=== PATIENT | male | born 1950 | race Caucasian/White ===

== ENCOUNTER 2016-12-03 06:27 | Day surgery (SDC) | payer MEDICARE ==
[2016-11-26 10:16] VITALS: BMI 27.8
[~2016-12-03 06:27] MED LIST: DEXAMETHASONE SOD PHOSPHATE 10 MG/ML 1 ML VIAL IV ONE; HEPARIN SODIUM,PORCINE 5,000 UNIT/ML 1 ML VIAL SQ ONE; LACTATED RINGERS 1,000 ML IV SCH; MIDAZOLAM 2 MG/2 ML VIAL IV PRN; ONDANSETRON 4 MG/2 ML VIAL IVP ONE; Pre Op ABX Message 1 EACH MISC MISCELLANE ONE; SCOPOLAMINE 1.5MG/72HR PATCH TRANSDERM ONE
--- NOTE | 2016-12-03 07:44 | P.GSHP ---
History of Present Illness H&P Date: 12/03/16 Chief Complaint: Multiple lipomas Patient here today for excision of multiple lipomas. He has had several removed in the past. Currently has symptomatic lipomas involving the left chest wall in the left arm. They are increasing in size. No drainage. Past Medical History Additional Past Medical History / Comment(s): hx lipomas, History of Any Multi-Drug Resistant Organisms: None Reported Past Surgical History: Back Surgery, Coronary Bypass/CABG, Heart Catheterization With Stent, Joint Replacement Additional Past Surgical History / Comment(s): DOUBLE BYPASS, ONE HEART STENT, removal of lipoma, jaw surgery X2, tyrell knee replacements Past Anesthesia/Blood Transfusion Reactions: Postoperative Nausea & Vomiting ( PONV) Additional Past Anesthesia/Blood Transfusion Reaction / Comment(s): PONV and unable to urinate from morphine Date of Last Stent Placement:: 10/2008 Past Psychological History: No Psychological Hx Reported Smoking Status: Never smoker Past Alcohol Use History: None Reported Past Drug Use History: None Reported - Past Family History Mother Family Medical History: Cancer Father Family Medical History: Diabetes Mellitus, Deep Vein Thrombosis (DVT), Hypertension Brother(s) Family Medical History: Deep Vein Thrombosis (DVT) Medications and Allergies Home Medications Medication Instructions Recorded Confirmed Type Aspirin 81 mg PO DAILY 07/29/15 12/03/16 History Multivitamins, Thera [Multivitamin] 1 each PO DAILY 07/29/15 12/03/16 History Naproxen Sodium [Aleve] 220 mg PO DIRECTED PRN 07/29/15 12/03/16 History L.acidoph,Paracasei, B.lactis 1 tab PO DAILY 11/26/16 12/03/16 History [Probiotic] Metoprolol Tartrate [Lopressor] 12.5 mg PO BID 11/26/16 12/03/16 History Polyethylene Glycol 3350 [Miralax] 17 gm PO DIRECTED PRN 11/26/16 12/03/16 History Pravastatin Sodium [Pravachol] 5 mg PO MOWEFR 11/26/16 12/03/16 History Silodosin [Rapaflo] 8 mg PO DAILY 11/26/16 12/03/16 History Allergies Allergy/AdvReac Type Severity Reaction Status Date / Time morphine Allergy Severe Nausea & Verified 12/03/16 06:53 Vomiting/UNABLE TO URINATE acetaminophen [From Lortab] Allergy Rash/Hives Verified 12/03/16 06:53 hydrocodone bitartrate Allergy Rash/Hives Verified 12/03/16 06:53 [From Lortab] propoxyphene napsylate Allergy Unknown Verified 12/03/16 06:53 [From Darvocet-N] Hogtphj-Ljo-Mle Reductase Allergy muscle Verified 12/03/16 06:53 Inhibitor weakness,increased liver function test Surgical - Exam Vital Signs Temp Pulse Resp BP Pulse Ox 97.9 F 98 18 147/98 99 12/03/16 06:57 12/03/16 06:57 12/03/16 06:57 12/03/16 06:57 12/03/16 06:57 Physical exam: General: Well-developed, well-nourished HEENT: Normocephalic, sclerae nonicteric Abdomen: Nontender, nondistended Extremities: No edema, large lipoma left brachial region measuring at least 6-7 cm, multiple lipomas involving the left chest wall measuring up to 4 cm in size Neuro: Alert and oriented Assessment and Plan (1) Multiple lipomas Narrative/Plan: We'll proceed with surgical excision at this time. Status: Acute
[2016-12-03] MEDS ORDERED: MIDAZOLAM 2 MG/2 ML VIAL ONE (07:54)
[2016-12-03] MEDS ORDERED: SUCCINYLCHOLINE CHLORIDE VIAL 200 MG/10 ML VIAL IV ONE (07:54)
[2016-12-03] MEDS ORDERED: PROPOFOL 10 MG/ML 20 ML VIAL IV ONE (07:54)
[2016-12-03] MEDS ORDERED: LIDOCAINE 1% INJ 10MG/ML (20 ML MDV) ONE (07:54)
[2016-12-03] MEDS ORDERED: fentaNYL (PF) 50 MCG/ML 2 ML AMP ONE (07:54)
[2016-12-03] MEDS ORDERED: ONDANSETRON 4 MG/2 ML VIAL ONE (07:54)
[2016-12-03] MEDS ORDERED: BUPIVACAIN-EPI 0.25%-1:200,000 30 ML VIAL SQ ONE ×3 (08:11→08:48)
[2016-12-03] MEDS ORDERED: LACTATED RINGERS 1,000 ML IV ONE (08:33)
[2016-12-03 09:11] VITALS: TEMP 97.6
[2016-12-03] MEDS ORDERED: NALOXONE 0.4 MG/ML 1 ML VIAL IV PRN (09:15)
--- NOTE | 2016-12-03 09:18 | P.PCN ---
Date of Procedure: 12/03/16 Procedure(s) Performed: PREOPERATIVE DIAGNOSIS: Multiple lipomas POSTOPERATIVE DIAGNOSIS: Same PROCEDURE: Excision multiple lipomas SURGEON: Cb EBL: Minimal ANESTHESIA: General COMPLICATIONS: None OPERATIVE PROCEDURE: Patient placed in the operative table in the supine position. The left upper arm and chest were prepped and draped in usual sterile fashion. First the left arm lipoma was addressed. This was in the brachial region anteriorly. A longitudinal incision was made. Instead of one lipoma there was actually 3 lipomas in that same area. These were all removed using both blunt dissection and cautery. These measured 4, 3, and 2 cm in size. The subcutaneous tissues were closed using 3-0 Vicryl sutures and the skin using 4-0 Monocryl sutures. Next the left chest wall was addressed. There were 4 separate lipomas present. These were all removed using small horizontal incisions. These measured 2.5, 2, 2, 1.5 cm. The skin incisions were closed in a similar fashion. Steri-Strips and sterile dressings were applied. DISPOSITION: Stable to recovery room
[2016-12-03] MEDS ORDERED: ACETAMINOPHEN TAB 325 MG TAB PO ONE (10:04)
[2016-12-03 10:28] VITALS: BP 126/80; PULSE 88; RESP 20
== END 2016-12-03 10:54 | disposition home or self-care (01) ==
LOC: OR 06:27
PROVIDERS: ATTEND Surgery
DX: D17.22 Benign lipomatous neoplasm of skin and subcutaneous tissue of left arm (principal); D17.1 Benign lipomatous neoplasm of skin and subcutaneous tissue of trunk; M79.89 Other specified soft tissue disorders; I10 Essential (primary) hypertension; E78.5 Hyperlipidemia, unspecified; I25.10 Atherosclerotic heart disease of native coronary artery without angina pectoris; Z95.1 Presence of aortocoronary bypass graft; Z79.82 Long term (current) use of aspirin; Z79.899 Other long term (current) drug therapy; Z88.5 Allergy status to narcotic agent; Z88.8 Allergy status to other drugs, medicaments and biological substances
CPT/HCPCS: 88304; 24071; 19260; J2250; J0330; J1644; J1100; J2405; J2001; J3010; J2704

== ENCOUNTER → 2016-12-22 | Outpatient (CLI) | payer MEDICARE | END | disposition home or self-care (01) | LOC: LABWHC1 16:46 | PROVIDERS: ATTEND Internal Medicine Clinical Cardiac Electrophysiology | DX: G72.9 Myopathy, unspecified (principal) | CPT/HCPCS: 36415; 82550 ==

== ENCOUNTER 2016-12-29 15:19 | Inpatient (IN) | payer MEDICARE ==
[2016-12-29] MEDS ORDERED: SODIUM CHLORIDE 0.9% 1,000 ML IV STA (17:32)
--- NOTE | 2016-12-29 17:33 | ED ---
General Adult HPI - General Source: patient, RN notes reviewed Mode of arrival: ambulatory Limitations: no limitations <Jam Carlson - Last Filed: 12/29/16 20:21> <Anand Yan - Last Filed: 12/29/16 20:45> - General Chief complaint: Abdominal Pain Stated complaint: GI Bleed lower Time Seen by Provider: 12/29/16 17:19 - History of Present Illness Initial comments: Patient is a 66-year-old male status post lumpectomy 3 weeks, who presents emergency room today with multiple complaints. Patient states she's been having abdominal pain since his surgery. States he does have a history of constipation specifically worse after general anesthesia. He admits that he was unable to take laxatives due to a in the family. States been having small bowel movements. States today he has 9 small bowel movements that were bright red blood on the toilet paper. He admits to a history of hemorrhoids. Patient admits that he began having some chest pain and discomfort yesterday. Patient states it is to the left side and feels similar to the pain that he was experiencing with these lumps prior to surgery. Patient does admit to some shortness of breath. Admits to increased abdominal pain with decreased ability to void. States she's had similar problems in the past and difficulties with Ross catheters. Patient currently admits to increased abdominal pain. He admits to a fullness sensation feeling constipated. Currently denies any other complaints at this time. Patient denies any recent fever, chills, back pain, abdominal pain, nausea or vomiting, numbness or tingling, hematuria, diarrhea, headaches or visual changes, or any other complaints. (Jam Carlson) - Related Data Home Medications Medication Instructions Recorded Confirmed Aspirin 81 mg PO DAILY 07/29/15 12/29/16 Naproxen Sodium [Aleve] 220 mg PO Q24HR PRN 07/29/15 12/29/16 L.acidoph,Paracjoni, B.lactis 1 tab PO DAILY 11/26/16 12/29/16 [Probiotic] Metoprolol Tartrate [Lopressor] 12.5 mg PO BID 11/26/16 12/29/16 Polyethylene Glycol 3350 [Miralax] 17 gm PO DAILY 11/26/16 12/29/16 Pravastatin Sodium [Pravachol] 5 mg PO MOWEFR 11/26/16 12/29/16 Silodosin [Rapaflo] 8 mg PO DAILY 11/26/16 12/29/16 Clotrimazole/Betameth Cream 1 applic TOPICAL BID 12/29/16 12/29/16 [Lotrisone] Dimethic/Zinc Ox/Vits A,D/Aloe 1 applic TOPICAL DAILY PRN 12/29/16 12/29/16 [A+D Zinc Oxide Cream] Phenyleph/Mineral Oil/Petrolat 1 applic RECTAL DAILY PRN 12/29/16 12/29/16 [Preparation H Ointment] Proctocort 30 mg RECTAL BID PRN 12/29/16 12/29/16 Zinc Oxide [Desitin] 1 applic TOPICAL DAILY PRN 12/29/16 12/29/16 Allergies Allergy/AdvReac Type Severity Reaction Status Date / Time morphine Allergy Severe Nausea & Verified 12/29/16 17:07 Vomiting/UNABLE TO URINATE acetaminophen [From Lortab] Allergy Rash/Hives Verified 12/29/16 17:07 codeine Allergy Unknown Verified 12/29/16 17:07 hydrocodone bitartrate Allergy Rash/Hives Verified 12/29/16 17:07 [From Lortab] propoxyphene napsylate Allergy Unknown Verified 12/29/16 15:46 [From Darvocet-N] Ezwhgof-Eqq-Bqb Reductase Allergy muscle Verified 12/29/16 17:07 Inhibitor weakness,increased liver function test Review of Systems ROS Other: All systems not noted in ROS Statement are negative. <Jam Carlson - Last Filed: 12/29/16 20:21> ROS Other: All systems not noted in ROS Statement are negative. <Anand Yan - Last Filed: 12/29/16 20:45> ROS Statement: Those systems with pertinent positive or pertinent negative responses have been documented in the HPI. Past Medical History Additional Past Medical History / Comment(s): elevated creatinine, hx trauma induced gout, hx lipomas, History of Any Multi-Drug Resistant Organisms: None Reported Past Surgical History: Heart Catheterization With Stent, Joint Replacement Additional Past Surgical History / Comment(s): removal of lipoma, jaw surgery, tyrell knee replacements Past Anesthesia/Blood Transfusion Reactions: Postoperative Nausea & Vomiting ( PONV) Additional Past Anesthesia/Blood Transfusion Reaction / Comment(s): PONV and unable to urinate from morphine Date of Last Stent Placement:: 10/2008 Past Psychological History: No Psychological Hx Reported Smoking Status: Never smoker Past Alcohol Use History: Rare Past Drug Use History: None Reported - Past Family History Mother Family Medical History: Cancer Father Family Medical History: Diabetes Mellitus, Deep Vein Thrombosis (DVT), Hypertension Brother(s) Family Medical History: Deep Vein Thrombosis (DVT) <Jam Carlson - Last Filed: 12/29/16 20:21> General Exam Limitations: no limitations <Jam Carlson - Last Filed: 12/29/16 20:21> <Anand Yan - Last Filed: 12/29/16 20:45> - General Exam Comments Initial Comments: General: The patient is awake and alert, in no distress, and does not appear acutely ill. Eye: Pupils are equal, round and reactive to light, extra-ocular movements are intact. No nystagmus. There is normal conjunctiva bilaterally. No signs of icterus. Ears, nose, mouth and throat: There are moist mucous membranes and no oral lesions. Neck: The neck is supple, there is no tenderness or JVD. Cardiovascular: There is a regular rate and rhythm. No murmur, rub or gallop is appreciated. Respiratory: Lungs are clear to auscultation, respirations are non-labored, breath sounds are equal. No wheezes, stridor, rales, or rhonchi. Gastrointestinal: Normal appearance and appear normal bowel sounds. Abdomen soft on palpation. Patient does have mild tenderness and discomfort on palpation throughout the abdomen. Musculoskeletal: Normal ROM, no tenderness. Strength 5/5. Sensation intact. Pulses equal bilaterally 2+. Neurological: A&O x 3. CN II-XII intact, There are no obvious motor or sensory deficits. Coordination appears grossly intact. Speech is normal. Skin: Skin is warm and dry and no rashes or lesions are noted. Psychiatric: Cooperative, appropriate mood & affect, normal judgment. (Jam Carlson) Course <Jam Carlson - Last Filed: 12/29/16 20:21> <Anand Yan - Last Filed: 12/29/16 20:45> Vital Signs 12/29/16 12/29/16 12/29/16 15:37 17:25 18:13 Temperature 97.8 F Pulse Rate 113 H 116 H 110 H Respiratory 20 18 20 Rate Blood Pressure 152/93 145/103 139/86 O2 Sat by Pulse 98 99 Oximetry 12/29/16 18:47 Temperature Pulse Rate 99 Respiratory 22 Rate Blood Pressure 139/89 O2 Sat by Pulse 94 L Oximetry - Reevaluation(s) Reevaluation #1: 12/29/16 20:22 Case discussed and signed out to attending physician at this time Dr. Yan. Patient's labs been reviewed. Patient's CT shows negative CT scanning of the chest abdomen pelvis. There is left renal parapelvic cyst. Normal appendix. Small hiatal hernia. There is noted a minimal degenerative first degree L5-4. Probable hemangioma Right lobe of the liver. 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 Patient still having some mild abdominal discomfort. Abdomen soft on palpation. Patient will be given enema here the emergency room to see if there is relief. (Jam Carlson) Medical Decision Making - Lab Data Result diagrams: 12/29/16 17:05 12/29/16 17:05 <Jam Carlson - Last Filed: 12/29/16 20:21> - Lab Data Result diagrams: 12/29/16 17:05 12/29/16 17:05 <Anand Yan - Last Filed: 12/29/16 20:45> - Medical Decision Making Review of systems. I interviewed the patient he states she's not had a normal bowel movement for several weeks. For the past 10 days to having blood after he wipes or take sometimes 10 tissues to stop the bleeding. Rectal examination done at this time is extremely painful unable to insert my finger more than 3 course of an inch. Fresh blood was noted. No strong evidence for external bleeding hemorrhoids cannot rule out internal fissure or internal bleeding hemorrhoids. The patient has had decreased appetite. Almost no bowel movements for several weeks that would consider normal. He has had a lot of stress lately with the of his mother. Vital signs reviewed. The patient' s x-rays were reviewed and reported on by the radiologist essentially no evidence of any obstruction. The patient's white count 12.5 hemoglobin 17 hematocrit 51, INR 1.1 the d-dimer elevated 1.87 BUN 11 creatinine 1.0 GFR greater than 60. Glucose 107. Troponin less than 0. Total bilirubin 1.8, CK 250 MB 4.1. Examination the abdomen is tender, active bowel sounds. Patient appears very uncomfortable. He has seen Dr. Silveira in the past one year ago had a colonoscopy which apparently did not show any diverticular issues. I discussed the case with Dr. De Los Santos he agrees with the patient be admitted his service with consultation from Dr. Silveira for GI bleed. (Anand Yan) - Lab Data Lab Results 12/29/16 12/29/16 12/29/16 Range/Units 17:05 17:05 17:05 WBC 12.5 H (3.8-10.6) k/uL RBC 5.90 (4.30-5.90) m/uL Hgb 17.3 (13.0-17.5) gm/dL Hct 51.2 (39.0-53.0) % MCV 86.7 (80.0-100.0) fL MCH 29.3 (25.0-35.0) pg MCHC 33.7 (31.0-37.0) g/dL RDW 13.6 (11.5-15.5) % Plt Count 229 (150-450) k/uL Neutrophils % 77 % Lymphocytes % 11 % Monocytes % 9 % Eosinophils % 1 % Basophils % 0 % Neutrophils # 9.6 H (1.3-7.7) k/uL Lymphocytes # 1.4 (1.0-4.8) k/uL Monocytes # 1.1 H (0-1.0) k/uL Eosinophils # 0.1 (0-0.7) k/uL Basophils # 0.1 (0-0.2) k/uL PT (9.0-12.0) sec INR (<1.1) APTT (22.0-30.0) sec D-Dimer (<0.60) mg/L FEU Sodium 139 (137-145) mmol/L Potassium 4.4 (3.5-5.1) mmol/L Chloride 104 (98-107) mmol/L Carbon Dioxide 21 L (22-30) mmol/L Anion Gap 14 mmol/L BUN 11 (9-20) mg/dL Creatinine 1.00 (0.66-1.25) mg/dL Est GFR (MDRD) Af Amer >60 (>60 ml/min/1.73 sqM) Est GFR (MDRD) Non-Af >60 (>60 ml/min/1.73 sqM) Glucose 107 H (74-99) mg/dL Calcium 9.7 (8.4-10.2) mg/dL Total Bilirubin 1.8 H (0.2-1.3) mg/dL AST 35 (17-59) U/L ALT 45 (21-72) U/L Alkaline Phosphatase 88 (38-126) U/L Total Creatine Kinase 258 H (55-170) U/L CK-MB (CK-2) 4.1 H* (0.0-2.4) ng/mL CK-MB (CK-2) Rel Index 1.6 Troponin I <0.012 (0.000-0.034) ng/mL Total Protein 7.3 (6.3-8.2) g/dL Albumin 4.5 (3.5-5.0) g/dL Urine Color Urine Appearance (Clear) Urine pH (5.0-8.0) Ur Specific [place] (1.001-1.035) Urine Protein (Negative) Urine Glucose (UA) (Negative) Urine Ketones (Negative) Urine Blood (Negative) Urine Nitrate (Negative) Urine Bilirubin (Negative) Urine Urobilinogen (<2.0) mg/dL Ur Leukocyte Esterase (Negative) Stool Occult Blood (Negative) 12/29/16 12/29/16 12/29/16 Range/Units 17:05 17:05 17:30 WBC (3.8-10.6) k/uL RBC (4.30-5.90) m/uL Hgb (13.0-17.5) gm/dL Hct (39.0-53.0) % MCV (80.0-100.0) fL MCH (25.0-35.0) pg MCHC (31.0-37.0) g/dL RDW (11.5-15.5) % Plt Count (150-450) k/uL Neutrophils % % Lymphocytes % % Monocytes % % Eosinophils % % Basophils % % Neutrophils # (1.3-7.7) k/uL Lymphocytes # (1.0-4.8) k/uL Monocytes # (0-1.0) k/uL Eosinophils # (0-0.7) k/uL Basophils # (0-0.2) k/uL PT 10.8 (9.0-12.0) sec INR 1.1 (<1.1) APTT 23.4 (22.0-30.0) sec D-Dimer 1.87 H (<0.60) mg/L FEU Sodium (137-145) mmol/L Potassium (3.5-5.1) mmol/L Chloride (98-107) mmol/L Carbon Dioxide (22-30) mmol/L Anion Gap mmol/L BUN (9-20) mg/dL Creatinine (0.66-1.25) mg/dL Est GFR (MDRD) Af Amer (>60 ml/min/1.73 sqM) Est GFR (MDRD) Non-Af (>60 ml/min/1.73 sqM) Glucose (74-99) mg/dL Calcium (8.4-10.2) mg/dL Total Bilirubin (0.2-1.3) mg/dL AST (17-59) U/L ALT (21-72) U/L Alkaline Phosphatase (38-126) U/L Total Creatine Kinase (55-170) U/L CK-MB (CK-2) (0.0-2.4) ng/mL CK-MB (CK-2) Rel Index Troponin I (0.000-0.034) ng/mL Total Protein (6.3-8.2) g/dL Albumin (3.5-5.0) g/dL Urine Color Urine Appearance (Clear) Urine pH (5.0-8.0) Ur Specific [place] (1.001-1.035) Urine Protein (Negative) Urine Glucose (UA) (Negative) Urine Ketones (Negative) Urine Blood (Negative) Urine Nitrate (Negative) Urine Bilirubin (Negative) Urine Urobilinogen (<2.0) mg/dL Ur Leukocyte Esterase (Negative) Stool Occult Blood Positive (Negative) 12/29/16 Range/Units 17:43 WBC (3.8-10.6) k/uL RBC (4.30-5.90) m/uL Hgb (13.0-17.5) gm/dL Hct (39.0-53.0) % MCV (80.0-100.0) fL MCH (25.0-35.0) pg MCHC (31.0-37.0) g/dL RDW (11.5-15.5) % Plt Count (150-450) k/uL Neutrophils % % Lymphocytes % % Monocytes % % Eosinophils % % Basophils % % Neutrophils # (1.3-7.7) k/uL Lymphocytes # (1.0-4.8) k/uL Monocytes # (0-1.0) k/uL Eosinophils # (0-0.7) k/uL Basophils # (0-0.2) k/uL PT (9.0-12.0) sec INR (<1.1) APTT (22.0-30.0) sec D-Dimer (<0.60) mg/L FEU Sodium (137-145) mmol/L Potassium (3.5-5.1) mmol/L Chloride (98-107) mmol/L Carbon Dioxide (22-30) mmol/L Anion Gap mmol/L BUN (9-20) mg/dL Creatinine (0.66-1.25) mg/dL Est GFR (MDRD) Af Amer (>60 ml/min/1.73 sqM) Est GFR (MDRD) Non-Af (>60 ml/min/1.73 sqM) Glucose (74-99) mg/dL Calcium (8.4-10.2) mg/dL Total Bilirubin (0.2-1.3) mg/dL AST (17-59) U/L ALT (21-72) U/L Alkaline Phosphatase (38-126) U/L Total Creatine Kinase (55-170) U/L CK-MB (CK-2) (0.0-2.4) ng/mL CK-MB (CK-2) Rel Index Troponin I (0.000-0.034) ng/mL Total Protein (6.3-8.2) g/dL Albumin (3.5-5.0) g/dL Urine Color Light Yellow Urine Appearance Clear (Clear) Urine pH 5.0 (5.0-8.0) Ur Specific [place] 1.006 (1.001-1.035) Urine Protein Negative (Negative) Urine Glucose (UA) Negative (Negative) Urine Ketones Trace H (Negative) Urine Blood Negative (Negative) Urine Nitrate Negative (Negative) Urine Bilirubin Negative (Negative) Urine Urobilinogen <2.0 (<2.0) mg/dL Ur Leukocyte Esterase Negative (Negative) Stool Occult Blood (Negative) Disposition <Jam Carlson - Last Filed: 12/29/16 20:21> <Anand Yan - Last Filed: 12/29/16 20:45> Clinical Impression: GI bleed Disposition: ADMITTED IP TO THIS HOSP Condition: Fair
[2016-12-29 17:34] LABS: Basophils # (A) 0.1 k/uL (0-0.2); Basophils % (A) 0 %; CH 30.7; CHCM 35.6; Eosinophils # (A) 0.1 k/uL (0-0.7); Eosinophils % (A) 1 %; HCT 51.2 % (39.0-53.0); HDW 2.93; HGB 17.3 gm/dL (13.0-17.5); Luc # (Auto) 0.29; Luc % (Auto) 2; Lymphocytes # (A) 1.4 k/uL (1.0-4.8); Lymphocytes % (A) 11 %; MCH 29.3 pg (25.0-35.0); MCHC 33.7 g/dL (31.0-37.0); MCV 86.7 fL (80.0-100.0); Mean Platelet Volume 7.3; Monocytes # (A) 1.1 k/uL (0-1.0); Monocytes % (A) 9 %; Neutrophils # (A) 9.6 k/uL (1.3-7.7); Neutrophils % (A) 77 %; RDW 13.6 % (11.5-15.5); WBC 12.5 k/uL (3.8-10.6); WBC (Perox) 12.96
[2016-12-29 17:42] LABS: ALT 45 U/L (21-72); AST 35 U/L (17-59); Alkaline Phosphatase 88 U/L (38-126); Anion Gap 14 mmol/L; Blood Urea Nitrogen 11 mg/dL (9-20); Calcium 9.7 mg/dL (8.4-10.2); Carbon Dioxide 21 mmol/L (22-30); Chloride 104 mmol/L (98-107); Glucose 107 mg/dL (74-99); Non-African American GFR(MDRD) >60 (>60 ml/min/1.73 sqM); Potassium 4.4 mmol/L (3.5-5.1); Sodium 139 mmol/L (137-145); Total Bilirubin 1.8 mg/dL (0.2-1.3); Total Protein 7.3 g/dL (6.3-8.2)
[2016-12-29 17:51] LABS: Creatine Kinase 258 U/L (55-170)
[2016-12-29] MEDS ORDERED: LORazepam 1 MG TAB PO STA (17:54)
[2016-12-29 18:04] LABS: Troponin I <0.012 ng/mL (0.000-0.034)
[2016-12-29 18:10] LABS: Creatine Kinase MB 4.1 ng/mL (0.0-2.4)
--- NOTE | 2016-12-29 18:33 | XR ---
EXAMINATION TYPE: XR chest 2V DATE OF EXAM: 12/29/2016 6:25 PM COMPARISON: NONE HISTORY: Chest pain TECHNIQUE: Frontal and lateral views of the chest are obtained. FINDINGS: There is no heart failure nor confluent pneumonic infiltrate. There are no hilar masses. T here are sternal wires. There are chest leads. Costophrenic angles are clear. Bony thorax is intact. IMPRESSION: No active cardiopulmonary disease. Normal heart.
[2016-12-29 18:34] LABS: Appearance,Urine Clear (Clear); Bilirubin,Urine Negative (Negative); Glucose,Urine (UA) Negative (Negative); Ketones,Urine Trace (Negative); Leukocyte Esterase,Urine Negative (Negative); Nitrite,Urine Negative (Negative); Protein,Urine Negative (Negative); Specific Gravity,Urine 1.006 (1.001-1.035); UA Billing (MACRO vs. MICRO) CHEM; Urobilinogen,Urine <2.0 mg/dL (<2.0)
--- NOTE | 2016-12-29 18:35 | XR ---
EXAMINATION TYPE: XR KUB DATE OF EXAM: 12/29/2016 6:25 PM COMPARISON: NONE HISTORY: Rectal bleeding TECHNIQUE: 2 views FINDINGS: Bowel gas pattern is normal. There is no sign of intestinal obstruction or pneumoperitoneum . Fecal pattern is normal. There is no evidence of a mass. Lung bases are clear. There are no patholo gic calcifications over the kidneys. Bony structures are intact. This probably lower lumbar spine nascimento inectomy. There are a few fluid levels in the right abdomen consistent with fluid in the right colon. IMPRESSION: Right-sided colonic air-fluid levels could relate to diarrhea or active bleeding. No free air. No bowel obstruction..
[2016-12-29] MEDS ORDERED: RX INFO: IV CONTRAST WAS GIVEN 1 EACH MISC MISCELLANE PRN (18:55)
[2016-12-29 19:02] LABS: INR 1.1 (<1.1); Prothrombin Time 10.8 sec (9.0-12.0)
--- NOTE | 2016-12-29 19:51 | CT ---
EXAMINATION TYPE: CT Chest Abd Pelvis w con DATE OF EXAM: 12/29/2016 7:36 PM COMPARISON: NONE HISTORY: rectal and scrotal pain with rectal bleeding for [address] DLP: 1866.9 mGycm Automated exposure control for dose reduction was used. CONTRAST: CT scan of the chest, abdomen and pelvis is performed without Oral Contrast and with IV Contrast, pat ient injected with 100 mL of Omnipaque 300. FINDINGS: The lungs are clear of consolidation. There is no pleural effusion. There is probably a small hiatal hernia. Heart size is normal. There is no pericardial effusion. There are no hilar masses. Ascending aorta measures up to 4 cm. There is no evidence of aortic dissection. There is no mediastinal adenopa thy. There is a geographic 3 cm area of hypodensity in the superior right lobe of the liver that could rel ate to hemangioma. This appears to enhance on the delayed images. Spleen appears normal. There is no pancreatic mass. Gallbladder appears normal. Bile ducts are not di lated. There is no adrenal mass. There is no hydronephrosis. There are left-sided renal parapelvic cysts. Th ere is a 1 cm cortical cyst on the lateral right kidney. There is no retroperitoneal adenopathy. Ther e is no ascites. Bladder distends smoothly. There is no sign of a hernia. I see no pelvic mass. Appen sukumar appears normal. IMPRESSION: Negative CT scan of the chest abdomen and pelvis. Left renal parapelvic cysts. Normal justina endix. Small hiatal hernia. There is noted a minimal degenerative first-degree L5-4 spondylolisthesis . Probable hemangioma in the superior right lobe of the liver. Minimal 4 cm aneurysm of the ascending aorta.
[2016-12-29] MEDS ORDERED: NALOXONE 0.4 MG/ML 1 ML VIAL IV PRN (20:45)
[2016-12-29] MEDS ORDERED: ONDANSETRON 4 MG/2 ML VIAL IVP PRN (20:45)
[2016-12-29] MEDS ORDERED: HYDROCORTISONE 2.5% RECTAL CREAM 30 GM TUBE RECTAL PRN (20:50)
[2016-12-29] MEDS ORDERED: VITS A & D-WHITE PET-LANOLIN 5 GM OINT.PACK TOPICAL PRN (20:50)
[2016-12-29] MEDS ORDERED: ENALAPRILAT 1.25 MG/ML 1 ML VIAL IVP PRN (20:51)
[2016-12-29] MEDS: CLOTRIMAZOLE/BETAMETH 1-0.05% CREAM 45 GM TUBE TOPICAL SCH (23:03)
[2016-12-29] MEDS ORDERED: NAPROXEN 250 MG TAB PO PRN (23:13)
[2016-12-29] MEDS ORDERED: PRAVASTATIN SODIUM 20 MG TAB PO SCH (23:15)
[2016-12-29] MEDS: METOPROLOL TARTRATE 12.5 MG TAB PO SCH (23:53)
[2016-12-29] MEDS: SODIUM CHLORIDE 0.9% 1,000 ML IV SCH (23:54)
[2016-12-30] MEDS: LORazepam 1 MG TAB PO PRN ×4 (00:22→18:06)
[2016-12-30] MEDS: SODIUM CHLORIDE 0.9% 1,000 ML IV SCH ×2 (05:58→19:24)
--- NOTE | 2016-12-30 08:36 | P.HPIM ---
History of Present Illness Chief complaint: The patient is a 66 showed gentleman who presented to the emergency room yesterday with abdominal pain and rectal bleeding along with the rather severe rectal pain and constipation. History of present illness: Patient has had problems with constipation chronically. He is on several medications for maintenance of his symptoms. 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 He also has history of hemorrhoids. Apparently symptoms have worsened over the past 7-10 days with the inability to pass gas. Nausea. Rectal pain and rectal bleeding with bowel movement being very thin and small. Symptoms were not clearing with his usual hydrocortisone cream and MiraLAX. He even tried a enema at home and was not very successful. And he has had recurrent bleeding per rectum. Patient states he has been thrown off his routine apparently with the recent of his mother. Also he has had some earlier surgery this year on the left breast for nodules that were present which apparently are benign. Past medical history: 1. Patient has a history of underlying coronary artery disease. He has had previous coronary artery bypass surgery along with stenting. 2. 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 And has only been able to tolerate a very low dose for his cholesterol medication through cardiology. He has always had a elevated CPK value since starting statins many years ago. 3. Hyperlipidemia. 4. Degenerative joint disease specifically with bilateral knee replacements. 5. Recent left breast lumpectomy. 6. Patient also has urinary difficulties for which he has seen urology and is on medication. Medications: ALLERGIES and adverse reactions: Patient has had difficulties with codeine with rash and hives. Morphine with nausea and vomiting. 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 Home medications: Aspirin 81 mg daily. Naproxen 220 mg every day as needed. He is on probiotics. Lopressor 12.5 twice a day. MiraLAX 17 g daily 5 mg of pravastatin 3 times a week. Silodosin 8 mg daily per urology. Lotrisone cream topically twice a day. Preparation H ointment as needed Proctocort 30 mg rectal twice a day as needed And Desitin cream applied topically to the rectal area as needed. Review of systems: No unusual fever or chills or headaches. No cough or unusual phlegm production. No angina-type chest pain. Some nausea intermittently without marked vomiting. Abdominal pain is somewhat diffuse but also lower quadrants. Patient does state he has some intermittent dysuria. Family history Mother had underlying cancer and recently . Father has had diabetes and hypertension. Also there have been blood clots with his father and brother. Social history: The patient lives locally with his and is a retired schoolteacher. No history of smoking or any excessive alcohol usage. Physical exam: Patient is alert and oriented. Generally he is of large stature. Vital signs reveal temperature of 99. Pulse of 85. Respirations 16. Blood pressure 110/73. And he is 97% saturated on room air. Head and neck exam unremarkable. Neck without adenopathy or bruits or thyromegaly detected. Lungs are clear. Heart regular without murmur. Abdomen is somewhat obese but generally soft and nontender without rebound guarding or masses detected. Rectal and genital exam deferred to surgery. Extremities reveal no edema. He is alert and oriented. Cranial nerves intact. No focal weakness noted. Laboratory values: White count was 12.5 with a hemoglobin 17.3 and a platelet count of 229. INR is 1.1. D-dimer is 1.87. Sodium potassium was normal and CO2 content of 21. BUN of 11 with a creatinine of 1.0 given him a GFR greater than 60. Random glucose was 107. Isolated bilirubin elevated at 1.8. Other liver enzymes were good. CK is elevated at 258 consistent with his myopathy. Troponins are less than 0.012. Albumin is 4.5. Urinalysis was generally negative. Occult blood positive. Radiologic studies: A KUB of the abdomen did show some colonic air-fluid levels on the right side. Patient did have a CAT scan of the chest abdomen and pelvis which shows some left renal parapelvic cysts. A possible right lobe of the liver hemangioma. A minimal 4 cm dilatation of the ascending aorta reported. EKG shows a sinus rhythm without ischemic changes. Impressions and plans: 1. Patient appears to be having some increased difficulty with bowel movements and perirectal spasm associated with rectal pain causing increase in obstipation and abdominal pain. Patient did have a partial colonoscopy finding a very tortuous colon but no other major abnormalities back in July 2015. Likely related to exacerbation of his chronic problems with his inconsistency in using his maintenance medication. We'll continue with his cortisone cream and have asked surgery to evaluate to see if there is any other actions can be taken. Patient does have multiple other comorbidities as stated above. Including coronary artery disease. Hyperlipidemia. Degenerative joint disease. Statin induced myopathy. Discussed with patient and spouse at bedside. Past Medical History Additional Past Medical History / Comment(s): elevated creatinine, hx trauma induced gout, hx lipomas, History of Any Multi-Drug Resistant Organisms: None Reported Past Surgical History: Coronary Bypass/CABG, Heart Catheterization With Stent, Joint Replacement Additional Past Surgical History / Comment(s): removal of lipoma, jaw surgery x2 , tyrell knee replacements, back surgery, right toe surgery Past Anesthesia/Blood Transfusion Reactions: Postoperative Nausea & Vomiting ( PONV) Additional Past Anesthesia/Blood Transfusion Reaction / Comment(s): PONV and unable to urinate from morphine Date of Last Stent Placement:: 10/2008 Past Psychological History: No Psychological Hx Reported Smoking Status: Never smoker Past Alcohol Use History: Rare Past Drug Use History: None Reported - Past Family History Mother Family Medical History: Cancer Father Family Medical History: Diabetes Mellitus, Deep Vein Thrombosis (DVT), Hypertension Brother(s) Family Medical History: Deep Vein Thrombosis (DVT) Medications and Allergies Home Medications Medication Instructions Recorded Confirmed Type Aspirin 81 mg PO DAILY 07/29/15 12/29/16 History Naproxen Sodium [Aleve] 220 mg PO Q24HR PRN 07/29/15 12/29/16 History L.acidoph,Paracasei, B.lactis 1 tab PO DAILY 11/26/16 12/29/16 History [Probiotic] Metoprolol Tartrate [Lopressor] 12.5 mg PO BID 11/26/16 12/29/16 History Polyethylene Glycol 3350 [Miralax] 17 gm PO DAILY 11/26/16 12/29/16 History Pravastatin Sodium [Pravachol] 5 mg PO MOWEFR 11/26/16 12/29/16 History Silodosin [Rapaflo] 8 mg PO DAILY 11/26/16 12/29/16 History Clotrimazole/Betameth Cream 1 applic TOPICAL BID 12/29/16 12/29/16 History [Lotrisone] Dimethic/Zinc Ox/Vits A,D/Aloe 1 applic TOPICAL DAILY PRN 12/29/16 12/29/16 History [A+D Zinc Oxide Cream] Phenyleph/Mineral Oil/Petrolat 1 applic RECTAL DAILY PRN 12/29/16 12/29/16 History [Preparation H Ointment] Proctocort 30 mg RECTAL BID PRN 12/29/16 12/29/16 History Zinc Oxide [Desitin] 1 applic TOPICAL DAILY PRN 12/29/16 12/29/16 History Allergies Allergy/AdvReac Type Severity Reaction Status Date / Time morphine Allergy Severe Nausea & Verified 12/29/16 17:07 Vomiting/UNABLE TO URINATE acetaminophen [From Lortab] Allergy Rash/Hives Verified 12/29/16 17:07 codeine Allergy Unknown Verified 12/29/16 17:07 hydrocodone bitartrate Allergy Rash/Hives Verified 12/29/16 17:07 [From Lortab] propoxyphene napsylate Allergy Unknown Verified 12/29/16 15:46 [From Darvocet-N] Coghrun-Jya-Zls Reductase Allergy muscle Verified 12/29/16 17:07 Inhibitor weakness,increased liver function test Physical Exam Vitals: Vital Signs Temp Pulse Pulse Resp BP BP Pulse Ox 12/29/16 23:00 97.5 F L 110 H 16 116/81 95 12/29/16 20:47 98 18 103/57 94 L Intake and Output 12/29/16 12/30/16 12/30/16 22:59 06:59 14:59 Output Total 425 Balance -425 Output: Urine 425 Other: Voiding Method Toilet Urinal # Voids 2 Results CBC & Chem 7: 12/29/16 17:05 12/29/16 17:05 Thrombosis Risk Factor Assmnt - Choose All That Apply Any of the Below Risk Factors Present?: Yes Each Factor Represents 1 point: Obesity (BMI >25) Other Risk Factors: Yes Each Risk Factor Represents 2 Points: Age 61-74 years Each Risk Factor Represents 3 Points: Family history of DVT/PE Other congenital or acquired thrombophilia - If yes, enter type in comment: No Thrombosis Risk Factor Assessment Total Risk Factor Score: 6 Thrombosis Risk Factor Assessment Level: High Risk
[2016-12-30] MEDS ORDERED: TAMSULOSIN 0.4 MG CAP.ER.24H PO SCH (09:00)
[2016-12-30 09:33] LABS: Basophils # (A) 0.1 k/uL (0-0.2); Basophils % (A) 1 %; CH 30.6; CHCM 35.3; Eosinophils # (A) 0.1 k/uL (0-0.7); Eosinophils % (A) 1 %; HCT 44.6 % (39.0-53.0); HDW 3.04; HGB 14.9 gm/dL (13.0-17.5); Luc # (Auto) 0.16; Luc % (Auto) 2; Lymphocytes # (A) 1.9 k/uL (1.0-4.8); Lymphocytes % (A) 19 %; MCH 29.2 pg (25.0-35.0); MCHC 33.5 g/dL (31.0-37.0); MCV 87.2 fL (80.0-100.0); Mean Platelet Volume 7.7; Monocytes # (A) 1.3 k/uL (0-1.0); Monocytes % (A) 12 %; Neutrophils # (A) 6.7 k/uL (1.3-7.7); Neutrophils % (A) 66 %; RBC 5.11 m/uL (4.30-5.90); RDW 13.5 % (11.5-15.5); WBC 10.2 k/uL (3.8-10.6); WBC (Perox) 10.31
[2016-12-30 09:58] LABS: ALT 36 U/L (21-72); AST 27 U/L (17-59); Alkaline Phosphatase 67 U/L (38-126); Anion Gap 9 mmol/L; Blood Urea Nitrogen 11 mg/dL (9-20); Calcium 8.6 mg/dL (8.4-10.2); Carbon Dioxide 28 mmol/L (22-30); Chloride 105 mmol/L (98-107); Glucose 92 mg/dL (74-99); Non-African American GFR(MDRD) >60 (>60 ml/min/1.73 sqM); Potassium 4.4 mmol/L (3.5-5.1); Sodium 142 mmol/L (137-145); Total Bilirubin 1.5 mg/dL (0.2-1.3)
[2016-12-30] MEDS: LACTOBACILLUS ACIDOPH & BULGAR 1 EACH PACKET PO SCH ×2 (10:06→10:10)
[2016-12-30] MEDS: METOPROLOL TARTRATE 12.5 MG TAB PO SCH ×2 (10:06→22:06)
[2016-12-30] MEDS: PANTOPRAZOLE 40 MG/10 ML VIAL IV SCH (10:06)
[2016-12-30] MEDS: CLOTRIMAZOLE/BETAMETH 1-0.05% CREAM 45 GM TUBE TOPICAL SCH ×2 (10:07→22:08)
--- NOTE | 2016-12-30 14:45 | P.GSCN ---
History of Present Illness Consult date: 12/30/16 Reason for Consult: Rectal bleeding History of present illness: Patient is known to our service. The patient has issues with chronic constipation. He takes MiraLAX daily. He recently had surgery where he had lipomas removed from the upper torso. He had stopped taking his MiraLAX and between that and the pain medications his constipation had increased. Over the last 2-3 days he began experiencing increased bloating and abdominal discomforts. He noted a few episodes of rectal bleeding. He had a CAT scan of the chest abdomen and pelvis which shows may be slightly greater than average air and stool within the colon. No definite obstruction is seen. No Significant dilation is seen. He did have enemas yesterday in the ER with some improvement. His last colonoscopy was July 2015. The patient's colon was quite long and somewhat tortuous. We were unable to advance beyond the hepatic flexure. Barium enema was offered but the patient declined. Review of Systems The patient denies any acute changes in his vision or hearing, no dysphagia or odynophagia, no chest pain or shortness of breath, no dysuria or hematuria, no headache, no runny nose, no unexplained weight loss Past Medical History Additional Past Medical History / Comment(s): elevated creatinine, hx trauma induced gout, hx lipomas, History of Any Multi-Drug Resistant Organisms: None Reported Past Surgical History: Coronary Bypass/CABG, Heart Catheterization With Stent, Joint Replacement Additional Past Surgical History / Comment(s): removal of lipoma, jaw surgery x2 , tyrell knee replacements, back surgery, right toe surgery Past Anesthesia/Blood Transfusion Reactions: Postoperative Nausea & Vomiting ( PONV) Additional Past Anesthesia/Blood Transfusion Reaction / Comm: PONV and unable to urinate from morphine Date of Last Stent Placement:: 10/2008 Past Psychological History: No Psychological Hx Reported Smoking Status: Never smoker Past Alcohol Use History: Rare Past Drug Use History: None Reported - Past Family History Mother Family Medical History: Cancer Father Family Medical History: Diabetes Mellitus, Deep Vein Thrombosis (DVT), Hypertension Brother(s) Family Medical History: Deep Vein Thrombosis (DVT) Medications and Allergies Home Medications Medication Instructions Recorded Confirmed Type Aspirin 81 mg PO DAILY 07/29/15 12/29/16 History Naproxen Sodium [Aleve] 220 mg PO Q24HR PRN 07/29/15 12/29/16 History L.acidoph,Paracasei, B.lactis 1 tab PO DAILY 11/26/16 12/29/16 History [Probiotic] Metoprolol Tartrate [Lopressor] 12.5 mg PO BID 11/26/16 12/29/16 History Polyethylene Glycol 3350 [Miralax] 17 gm PO DAILY 11/26/16 12/29/16 History Pravastatin Sodium [Pravachol] 5 mg PO MOWEFR 11/26/16 12/29/16 History Silodosin [Rapaflo] 8 mg PO DAILY 11/26/16 12/29/16 History Clotrimazole/Betameth Cream 1 applic TOPICAL BID 12/29/16 12/29/16 History [Lotrisone] Dimethic/Zinc Ox/Vits A,D/Aloe 1 applic TOPICAL DAILY PRN 12/29/16 12/29/16 History [A+D Zinc Oxide Cream] Phenyleph/Mineral Oil/Petrolat 1 applic RECTAL DAILY PRN 12/29/16 12/29/16 History [Preparation H Ointment] Proctocort 30 mg RECTAL BID PRN 12/29/16 12/29/16 History Zinc Oxide [Desitin] 1 applic TOPICAL DAILY PRN 12/29/16 12/29/16 History Allergies Allergy/AdvReac Type Severity Reaction Status Date / Time morphine Allergy Severe Nausea & Verified 12/29/16 17:07 Vomiting/UNABLE TO URINATE acetaminophen [From Lortab] Allergy Rash/Hives Verified 12/29/16 17:07 codeine Allergy Unknown Verified 12/29/16 17:07 hydrocodone bitartrate Allergy Rash/Hives Verified 12/29/16 17:07 [From Lortab] propoxyphene napsylate Allergy Unknown Verified 12/29/16 15:46 [From Darvocet-N] Iatmffw-Qxm-Uqm Reductase Allergy muscle Verified 12/29/16 17:07 Inhibitor weakness,increased liver function test Surgical - Exam Vital Signs Temp Pulse Resp BP Pulse Ox 97.8 F 113 H 20 152/93 98 12/29/16 15:37 12/29/16 15:37 12/29/16 15:37 12/29/16 15:37 12/29/16 15:37 Physical exam: General: Well-developed, well-nourished HEENT: Normocephalic, sclerae nonicteric Abdomen: Mild lower abdominal tenderness, nondistended Extremities: No edema Neuro: Alert and oriented Rectal exam deferred until tomorrow Results - Labs 12/30/16 09:14 12/30/16 09:14 Abnormal Lab Results - Last 24 Hours (Table) 12/30/16 12/30/16 Range/Units 09:14 09:14 Monocytes # 1.3 H (0-1.0) k/uL Total Bilirubin 1.5 H (0.2-1.3) mg/dL Total Protein 6.0 L (6.3-8.2) g/dL Albumin 3.4 L (3.5-5.0) g/dL Diabetes panel 12/30/16 Range/Units 09:14 Sodium 142 (137-145) mmol/L Potassium 4.4 (3.5-5.1) mmol/L Chloride 105 (98-107) mmol/L Carbon Dioxide 28 (22-30) mmol/L BUN 11 (9-20) mg/dL Creatinine 1.11 (0.66-1.25) mg/dL Glucose 92 (74-99) mg/dL Calcium 8.6 (8.4-10.2) mg/dL AST 27 (17-59) U/L ALT 36 (21-72) U/L Alkaline Phosphatase 67 (38-126) U/L Total Protein 6.0 L (6.3-8.2) g/dL Albumin 3.4 L (3.5-5.0) g/dL Calcium panel 12/30/16 Range/Units 09:14 Calcium 8.6 (8.4-10.2) mg/dL Albumin 3.4 L (3.5-5.0) g/dL Pituitary panel 12/30/16 Range/Units 09:14 Sodium 142 (137-145) mmol/L Potassium 4.4 (3.5-5.1) mmol/L Chloride 105 (98-107) mmol/L Carbon Dioxide 28 (22-30) mmol/L BUN 11 (9-20) mg/dL Creatinine 1.11 (0.66-1.25) mg/dL Glucose 92 (74-99) mg/dL Calcium 8.6 (8.4-10.2) mg/dL Adrenal panel 02/02/17 Range/Units 09:14 Sodium 142 (137-145) mmol/L Potassium 4.4 (3.5-5.1) mmol/L Chloride 105 (98-107) mmol/L Carbon Dioxide 28 (22-30) mmol/L BUN 11 (9-20) mg/dL Creatinine 1.11 (0.66-1.25) mg/dL Glucose 92 (74-99) mg/dL Calcium 8.6 (8.4-10.2) mg/dL Total Bilirubin 1.5 H (0.2-1.3) mg/dL AST 27 (17-59) U/L ALT 36 (21-72) U/L Alkaline Phosphatase 67 (38-126) U/L Total Protein 6.0 L (6.3-8.2) g/dL Albumin 3.4 L (3.5-5.0) g/dL Assessment and Plan (1) GI bleed Narrative/Plan: Patient with chronic constipation or this seems to be exacerbated at this time. No obstruction seen on CAT scan. Will consider colonoscopy tomorrow. Status: Acute
[2016-12-30] MEDS ORDERED: PEG 3350-NA SULF,BICARB,CL/KCL 4,000 ML BOTTLE PO ONE (14:47)
[2016-12-30] MEDS: RAPAFLO 8MG PO SCH (15:50)
[2016-12-31] MEDS: SODIUM CHLORIDE 0.9% 1,000 ML IV SCH ×2 (02:31→13:37)
[2016-12-31] MEDS: LORazepam 1 MG TAB PO PRN ×2 (06:48→16:05)
--- NOTE | 2016-12-31 07:58 | P.PN ---
Progress Note - Text The patient is a 66-year-old gentleman who presented to the emergency room 2 days ago with abdominal pain associated with rectal bleeding and rectal pain and rather severe constipation. Previous radiological workup with a CAT scan is unremarkable. He states his abdominal pain is a little bit better today but he is still having a lot of rectal pain. He did have a lot of movement with the preparation for colonoscopy later today. No vomiting. Vital signs reveal temperature 97.5 with a pulse 98 and respirations 14 and unlabored. Blood pressure is 137/87 and he is 94% saturated on room air. Lung and heart examination is clear and regular. Abdomen is obese but overall soft and nontender without organomegaly or masses detected. No unusual distal edema. No neurological deficits noted. Laboratory testing Repeat values from yesterday revealed the essentially unremarkable CBC with a hemoglobin of 14.9 and a white count of 10.2. Platelet count was 180. Electrolytes were unremarkable. Mild elevation of bilirubin to 1.5 and albumin slightly down at 3.4. Impressions and plans: Patient has been seen by surgery Dr. Vivar. Anticipating a colonoscopy later today. Hopefully findings can help with future therapeutic measures and plans.
[2016-12-31 08:02] VITALS: BP 124/87; PULSE 82; RESP 16; TEMP 96
[2016-12-31] MEDS: LACTOBACILLUS ACIDOPH & BULGAR 1 EACH PACKET PO SCH (08:11)
[2016-12-31] MEDS: METOPROLOL TARTRATE 12.5 MG TAB PO SCH (08:38)
[2016-12-31] MEDS: CLOTRIMAZOLE/BETAMETH 1-0.05% CREAM 45 GM TUBE TOPICAL SCH (08:39)
[2016-12-31] MEDS: PANTOPRAZOLE 40 MG/10 ML VIAL IV SCH (08:39)
[2016-12-31] MEDS: RAPAFLO 8MG PO SCH (11:41)
[2016-12-31] MEDS ORDERED: PROPOFOL 10 MG/ML 20 ML VIAL IV ONE (14:03)
[2016-12-31] MEDS ORDERED: IV FLUID CONTINUATION 900 ML IV ONE (14:07)
--- NOTE | 2016-12-31 15:16 | P.PCN ---
Date of Procedure: 12/31/16 Procedure(s) Performed: PREOPERATIVE DIAGNOSIS: Change in bowel habits, rectal bleeding POSTOPERATIVE DIAGNOSIS: Perianal abscess PROCEDURE: Colonoscopy ANESTHESIA: MAC SURGEON: Jam Vivar M.D. SPECIMENS: None ENDOSCOPIC PROCEDURE: The patient was placed on the endoscopy table in the left decubitus position. The Olympus colonoscope was inserted into the anus and passed under direct visualization to the distal ascending colon. Just like our last attempt a year and a half ago the patient's colon was quite long with a tortuous sigmoid and I could not advance more proximal to this. I could visualize the region of the cecum from a distance and no gross abnormalities were seen. The visualized ascending, transverse, descending, sigmoid and rectum appeared normal. The patient preoperatively was complaining of discomfort in the perianal location particularly at the 12:00 location. Inspection of that area digitally and then with the scope revealed a defect there measuring about 1 cm in size that appeared consistent with a spontaneously drained intersphincteric perianal abscess. This was tender to the touch. There was a small amount of bleeding seen here. The surrounding hemorrhoidal tissue appeared slightly inflamed as well. No additional abscess sites were suspected. The patient was taken to the recovery room in stable condition per anesthesia guidelines. RECOMMENDATIONS: Will begin oral antibiotics. Continue stool softeners. May be discharged from my standpoint. Patient will require short-term digital rectal examination to confirm healing of this region. If we do not appreciate adequate healing then patient will require biopsy to rule out anal malignancy.
--- NOTE | 2017-01-03 17:43 | DS ---
DATE OF ADMISSION: 12/31/2016 DATE OF DISCHARGE: 12/31/2016 Mr. Olivares is a 66-year-old gentleman who presented to the emergency room with abdominal pain along with perirectal discomfort and marked constipation over the past several days and weeks. He had some nausea with this. Pain had been across the upper abdomen and he had not been able to have a bowel movement for several days at that time except for very small bowel movements. Also this was associated with some bright red rectal bleeding. Patient was seen by the emergency room physician. He did have a radiologic workup with a CT scan of the chest, abdomen and pelvis. The abdomen and pelvis were essentially unremarkable except for left renal pelvic cysts. He had a normal appendix, a small hiatal hernia. 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 His chest x-ray revealed no active pulmonary disease. A KUB otherwise revealed right-sided colonic air-fluid levels, but no free air, no definite bowel obstruction was seen. His EKG revealed a normal sinus rhythm without acute ischemic changes. Laboratory values revealed initially elevated white count of 12.5, concentrated hemoglobin of 17.3 with a platelet count of 229. He did have D-dimer elevated at 1.7, which precipitated the scans as stated above. His INR was 1.1. His electrolytes revealed slightly low CO2 content of 21. His BUN was 11 with a creatinine of 1, giving him a GFR greater than 60. Initial blood sugar was 107. Initial bilirubin was elevated at 1.8. That did come down subsequently in 1.5. His CK values were 258, but these had been elevated in the past related to statin usage. Troponin was less than 0.012. His occult blood was positive. His urine was negative for leukocytes. Patient was placed on stool softeners and prepared for colonoscopy after being seen by Dr. Vivar from Surgery. At colonoscopy no polyps were seen, but there was an area at about the 12 o'clock location of the rectum that measured about 1 cm size and, according to Dr. Vivar, was consistent with a spontaneously drained intersphincteric anal abscess along with the presence of hemorrhoids. Patient was started on antibiotics and, with some clinical improvement, was discharged to follow up with Dr. Vivar to make sure there was healing of the abscess and no other etiology for it. Patient was discharged on: 1. Augmentin 875/125 to take one twice a day for a 7-day to 10-day period. 2. Aspirin 81 mg daily. 3. He was on Lotrisone cream to be applied twice a day to the perirectal area along with zinc oxide cream as needed. 4. He is on Probiotics. 5. He was to continue his metoprolol 12.5 twice a day. 6. Naproxen 250 mg daily if needed for pain. Otherwise, he was instructed to try to hold. 7. Preparation H ointment also to be applied if needed. 8. MiraLax 17 grams orally. 9. Pravastatin 5 mg on Mondays, Wednesdays and Fridays only because of his sensitivity. 10. Proctocort suppository as needed. 11. Rapaflo 8 mg daily for BPH. He is to follow up once again with Dr. Vivar the following week; call the office with any concerns or problems. FINAL DISCHARGE DIAGNOSES: 1. Spontaneously drained perianal intersphincteric abscess with resulting pain and muscle spasm resulting in severe obstipation and abdominal pain; also associated with internal hemorrhoids. This was also associated with initial leukocytosis that improved with treatment. 2. Past history of underlying coronary artery disease with previous coronary artery bypass and stenting. 3. 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 4. Hyperlipidemia. 5. Degenerative joint disease, specifically with bilateral knee replacements. 6. History of recent left breast lumpectomies for benign disease. 7. History of benign prostatic hypertrophy and urinary difficulties, for which he is on medications per Urology. Once again, diet as tolerated. Patient to continue his Augmentin, follow up with Dr. Vivar, call with any questions, concerns or problems. [facility]
== END 2016-12-31 16:43 | disposition home or self-care (01) | DRG 392 ==
LOC: EC 15:19 → 4MS4W 20:45 → INTOOBSV 20:45 → OBSVTOIN 12-31 08:50
PROVIDERS: ADMIT Internal Medicine; ATTEND Internal Medicine
PROC: 0DJD8ZZ Inspection of Lower Intestinal Tract, Via Natural or Artificial Opening Endoscopic (ICD-10-PCS; principal; 2016-12-31 07:30)
DX: K59.09 Other constipation (principal); G72.0 Drug-induced myopathy; I71.2 Thoracic aortic aneurysm, without rupture; K61.0 Anal abscess; N28.1 Cyst of kidney, acquired; D72.829 Elevated white blood cell count, unspecified; K64.8 Other hemorrhoids; R79.89 Other specified abnormal findings of blood chemistry; K62.89 Other specified diseases of anus and rectum; R10.9 Unspecified abdominal pain; R07.9 Chest pain, unspecified; D18.03 Hemangioma of intra-abdominal structures; N40.1 Benign prostatic hyperplasia with lower urinary tract symptoms; K44.9 Diaphragmatic hernia without obstruction or gangrene; R06.02 Shortness of breath; R11.0 Nausea; M62.838 Other muscle spasm; R30.0 Dysuria; T46.6X5A Adverse effect of antihyperlipidemic and antiarteriosclerotic drugs, initial encounter; I25.10 Atherosclerotic heart disease of native coronary artery without angina pectoris; E78.5 Hyperlipidemia, unspecified; M19.90 Unspecified osteoarthritis, unspecified site; M10.9 Gout, unspecified; Z96.653 Presence of artificial knee joint, bilateral; Z95.1 Presence of aortocoronary bypass graft; Z83.3 Family history of diabetes mellitus; Z82.49 Family history of ischemic heart disease and other diseases of the circulatory system; Z79.82 Long term (current) use of aspirin; Z88.6 Allergy status to analgesic agent; Z88.5 Allergy status to narcotic agent; Z88.8 Allergy status to other drugs, medicaments and biological substances; Z80.9 Family history of malignant neoplasm, unspecified; Z95.5 Presence of coronary angioplasty implant and graft; Z79.1 Long term (current) use of non-steroidal anti-inflammatories (NSAID); Z79.899 Other long term (current) drug therapy; Z98.890 Other specified postprocedural states
CPT/HCPCS: 36415; 45378; 51798; 71020; 71260; 74000; 74177; 80053; 81003; 82272; 82550; 82553; 84484; 85025; 85379; 85610; 85730; 87086; 93005; 96360; 96361; 96374; 99153; 99285

== ENCOUNTER 2017-01-12 16:23 | Inpatient (IN) | payer MEDICARE ==
[2017-01-12] MEDS ORDERED: RX INFO: IV CONTRAST WAS GIVEN 1 EACH MISC MISCELLANE PRN (17:23)
[2017-01-12 17:38] VITALS: BMI 26.9
[2017-01-12 17:58] LABS: Basophils # (A) 0.1 k/uL (0-0.2); Basophils % (A) 1 %; CH 30.6; CHCM 35.2; Eosinophils # (A) 0.3 k/uL (0-0.7); Eosinophils % (A) 2 %; HCT 51.5 % (39.0-53.0); HDW 2.99; HGB 17.2 gm/dL (13.0-17.5); Luc # (Auto) 0.21; Luc % (Auto) 1; Lymphocytes # (A) 2.7 k/uL (1.0-4.8); Lymphocytes % (A) 17 %; MCH 29.2 pg (25.0-35.0); MCHC 33.4 g/dL (31.0-37.0); MCV 87.4 fL (80.0-100.0); Mean Platelet Volume 7.4; Monocytes # (A) 1.1 k/uL (0-1.0); Monocytes % (A) 7 %; Neutrophils # (A) 11.3 k/uL (1.3-7.7); Neutrophils % (A) 73 %; RBC 5.89 m/uL (4.30-5.90); RDW 13.5 % (11.5-15.5); WBC 15.6 k/uL (3.8-10.6); WBC (Perox) 15.15
[2017-01-12 18:00] LABS: INR 1.1 (<1.1); Partial Thromboplastin Time 23.2 sec (22.0-30.0); Prothrombin Time 10.6 sec (9.0-12.0)
[2017-01-12] MEDS ORDERED: HYDROmorphone 1 MG/ML 1 ML SYRINGE IVP PRN ×2 (18:02)
[2017-01-12] MEDS ORDERED: HYDROCORTISONE 2.5% RECTAL CREAM 30 GM TUBE RECTAL PRN (18:03)
[2017-01-12] MEDS ORDERED: ZINC OX TOPICAL PRN (18:03)
[2017-01-12] MEDS ORDERED: [UNRECOGNIZED DRUG - OTHER] TOPICAL PRN (18:03)
[2017-01-12] MEDS ORDERED: MINERAL OIL RECTAL PRN (18:03)
[2017-01-12] MEDS ORDERED: ALOE TOPICAL PRN (18:03)
[2017-01-12] MEDS ORDERED: PHENYLEPH RECTAL PRN (18:03)
[2017-01-12] MEDS ORDERED: VITS A D TOPICAL PRN (18:03)
[2017-01-12] MEDS ORDERED: PETROLAT RECTAL PRN (18:03)
[2017-01-12] MEDS ORDERED: ZINC OXIDE 20% OINT 28.4 GM TUBE TOPICAL PRN (18:03)
[2017-01-12] MEDS: D5-0.45% NACL WITH KCL 20MEQ/L 1,000 ML IV SCH (18:08)
[2017-01-12 18:36] LABS: ALT 37 U/L (21-72); AST 28 U/L (17-59); Alkaline Phosphatase 81 U/L (38-126); Anion Gap 12 mmol/L; Blood Urea Nitrogen 15 mg/dL (9-20); Calcium 9.3 mg/dL (8.4-10.2); Carbon Dioxide 26 mmol/L (22-30); Chloride 103 mmol/L (98-107); Glucose 105 mg/dL (74-99); Non-African American GFR(MDRD) >60 (>60 ml/min/1.73 sqM); Potassium 4.6 mmol/L (3.5-5.1); Sodium 141 mmol/L (137-145); Total Bilirubin 1.4 mg/dL (0.2-1.3); Total Protein 6.9 g/dL (6.3-8.2)
--- NOTE | 2017-01-12 19:15 | CT ---
EXAMINATION TYPE: CT pelvis w con DATE OF EXAM: 01/12/2017 7:07 PM COMPARISON: 12/29/2016 HISTORY: PT STATES OF RECTAL BLEEDING AND PERRECTAL ABSCESS. CT DLP: 1458 mGycm Automated exposure control for dose reduction was used. CONTRAST: Performed with IV Contrast, patient injected with 100 mL of Omnipaque 300. FINDINGS: There is no evidence of renal obstruction. Bladder distends smoothly without contrast. Prostate appea rs normal. I see no intestinal wall thickening. There is no evidence of a perirectal abscess. There i s no free fluid in the pelvis. There is no sign of a hernia. Appendix appears normal. I see no bony d estructive process. IMPRESSION: NEGATIVE CT SCAN OF THE PELVIS. NO EVIDENCE OF PERIRECTAL ABSCESS. NORMAL APPENDIX. NO ADVERSE CHANGE COMPARED TO LAST EXAM.
[2017-01-12] MEDS: LEVOFLOXACIN 500MG-D5W PMX 500 MG in DEXTROSE/WATER 1 100ML.BAG IVPB SCH (19:43)
--- NOTE | 2017-01-12 19:44 | P.GSHP ---
History of Present Illness H&P Date: 01/12/17 Chief Complaint: Perirectal pain Patient is known to our service. He has had complaints of chronic constipation and pruritus ani for the last few months. His last colonoscopy was in July 2015 prior to an admission in early December. At that time the patient had once again complaints of constipation and abdominal pain and perianal pain. At the time of his colonoscopy identified a opening in the anal canal posteriorly that appeared consistent with a recently spontaneously drained abscess. This was significantly tender to the patient. He was started on antibiotics. He did have relief after his GoLYTELY was given and he was discharged home. He was seen in the office earlier today with complaints of persistent perianal discomfort. He says he feels a small knot just posterior and to the left of the anus that is tender to him. Examination the office today revealed a indurated area there that may have had a small central focus of fluctuance. The patient appeared quite uncomfortable. We decided to admit the patient directly to the hospital for further evaluation. A CAT scan of the pelvis was performed to rule out a perirectal abscess which appears normal. His labs reveal an elevated white blood cell count of 15. He denies fevers. A biopsy was not obtained at the time of the recent colonoscopy. - Review of Systems Comment: The patient denies any acute changes in his vision or hearing, no dysphagia or odynophagia, no chest pain or shortness of breath, no dysuria or hematuria, no headache, no runny nose, no melena, patient has had recent weight loss of about 10-15 pounds. Past Medical History Additional Past Medical History / Comment(s): elevated creatinine, hx trauma induced gout, hx lipomas, perirectal abscess History of Any Multi-Drug Resistant Organisms: None Reported Past Surgical History: Coronary Bypass/CABG, Heart Catheterization With Stent, Joint Replacement Additional Past Surgical History / Comment(s): removal of lipoma, dental implants with jaw surgery x2, tyrell knee replacements, back surgery, right toe surgery, colonoscopy Past Anesthesia/Blood Transfusion Reactions: Postoperative Nausea & Vomiting ( PONV) Additional Past Anesthesia/Blood Transfusion Reaction / Comment(s): PONV and unable to urinate from morphine Date of Last Stent Placement:: 10/2008 Past Psychological History: No Psychological Hx Reported Smoking Status: Never smoker Past Alcohol Use History: Rare Past Drug Use History: None Reported - Past Family History Mother Family Medical History: Cancer Father Family Medical History: Diabetes Mellitus, Deep Vein Thrombosis (DVT), Hypertension Brother(s) Family Medical History: Deep Vein Thrombosis (DVT) Medications and Allergies Home Medications Medication Instructions Recorded Confirmed Type Aspirin 81 mg PO DAILY 07/29/15 01/12/17 History Naproxen Sodium [Aleve] 220 mg PO Q24HR PRN 07/29/15 01/12/17 History L.acidoph,Paracasei, B.lactis 1 tab PO DAILY 11/26/16 01/12/17 History [Probiotic] Metoprolol Tartrate [Lopressor] 12.5 mg PO BID 11/26/16 01/12/17 History Polyethylene Glycol 3350 [Miralax] 17 gm PO DAILY 11/26/16 01/12/17 History Pravastatin Sodium [Pravachol] 5 mg PO MOWEFR 11/26/16 01/12/17 History Silodosin [Rapaflo] 8 mg PO DAILY 11/26/16 01/12/17 History Clotrimazole/Betameth Cream 1 applic TOPICAL BID 12/29/16 01/12/17 History [Lotrisone] Dimethic/Zinc Ox/Vits A,D/Aloe 1 applic TOPICAL DAILY PRN 12/29/16 01/12/17 History [A+D Zinc Oxide Cream] Phenyleph/Mineral Oil/Petrolat 1 applic RECTAL DAILY PRN 12/29/16 01/12/17 History [Preparation H Ointment] Proctocort 30 mg RECTAL BID PRN 12/29/16 01/12/17 History Zinc Oxide [Desitin] 1 applic TOPICAL DAILY PRN 12/29/16 01/12/17 History Levofloxacin [Levaquin] 500 mg PO DAILY 01/12/17 01/12/17 History Allergies Allergy/AdvReac Type Severity Reaction Status Date / Time morphine Allergy Severe Nausea & Verified 01/12/17 16:51 Vomiting/UNABLE TO URINATE acetaminophen [From Lortab] Allergy Rash/Hives Verified 01/12/17 16:51 codeine Allergy Unknown Verified 01/12/17 16:51 hydrocodone bitartrate Allergy Rash/Hives Verified 01/12/17 16:51 [From Lortab] propoxyphene napsylate Allergy Unknown Verified 01/12/17 16:51 [From AndrytrishN] Vdoyyue-Sgd-Jun Reductase Allergy muscle Verified 01/12/17 16:51 Inhibitor weakness,increased liver function test Surgical - Exam Vital Signs Temp Pulse Resp BP Pulse Ox 97.2 F L 104 H 18 119/79 96 01/12/17 17:14 01/12/17 17:14 01/12/17 17:14 01/12/17 17:14 01/12/17 17:14 Physical exam: General: Well-developed, well-nourished HEENT: Normocephalic, sclerae nonicteric Abdomen: Nontender, nondistended Extremities: No edema Rectal: Indurated region measuring approximately 1.5-2 cm just posterior and the left of the anus, central area less than 1 cm of suspected fluctuance, defect in the anal canal still present posteriorly and significant only tender, circumferential rubor that is chronic and appears to be related to his pruritus , no purulence identified on examination Neuro: Alert and oriented Results - Labs 01/12/17 17:39 01/12/17 17:39 Abnormal Lab Results - Last 24 Hours (Table) 01/12/17 01/12/17 Range/Units 17:39 17:39 WBC 15.6 H (3.8-10.6) k/uL Neutrophils # 11.3 H (1.3-7.7) k/uL Monocytes # 1.1 H (0-1.0) k/uL Glucose 105 H (74-99) mg/dL Total Bilirubin 1.4 H (0.2-1.3) mg/dL Diabetes panel 01/12/17 Range/Units 17:39 Sodium 141 (137-145) mmol/L Potassium 4.6 (3.5-5.1) mmol/L Chloride 103 (98-107) mmol/L Carbon Dioxide 26 (22-30) mmol/L BUN 15 (9-20) mg/dL Creatinine 1.10 (0.66-1.25) mg/dL Glucose 105 H (74-99) mg/dL Calcium 9.3 (8.4-10.2) mg/dL AST 28 (17-59) U/L ALT 37 (21-72) U/L Alkaline Phosphatase 81 (38-126) U/L Total Protein 6.9 (6.3-8.2) g/dL Albumin 4.2 (3.5-5.0) g/dL Calcium panel 01/12/17 Range/Units 17:39 Calcium 9.3 (8.4-10.2) mg/dL Albumin 4.2 (3.5-5.0) g/dL Pituitary panel 01/12/17 Range/Units 17:39 Sodium 141 (137-145) mmol/L Potassium 4.6 (3.5-5.1) mmol/L Chloride 103 (98-107) mmol/L Carbon Dioxide 26 (22-30) mmol/L BUN 15 (9-20) mg/dL Creatinine 1.10 (0.66-1.25) mg/dL Glucose 105 H (74-99) mg/dL Calcium 9.3 (8.4-10.2) mg/dL Adrenal panel 01/12/17 Range/Units 17:39 Sodium 141 (137-145) mmol/L Potassium 4.6 (3.5-5.1) mmol/L Chloride 103 (98-107) mmol/L Carbon Dioxide 26 (22-30) mmol/L BUN 15 (9-20) mg/dL Creatinine 1.10 (0.66-1.25) mg/dL Glucose 105 H (74-99) mg/dL Calcium 9.3 (8.4-10.2) mg/dL Total Bilirubin 1.4 H (0.2-1.3) mg/dL AST 28 (17-59) U/L ALT 37 (21-72) U/L Alkaline Phosphatase 81 (38-126) U/L Total Protein 6.9 (6.3-8.2) g/dL Albumin 4.2 (3.5-5.0) g/dL Assessment and Plan (1) Perirectal abscess Narrative/Plan: The CAT scan findings were reviewed. Will tentatively plan examination under anesthesia with possible incision and drainage and planned biopsy of the wound at the anal region. Underlying malignancy is considered unlikely but must be ruled out at this point. Risks of bleeding, infection, persistent pain, fistula formation, potential need for tertiary evaluation was all discussed with the patient and his earlier today. They understand and wish to proceed. Status: Acute
[2017-01-12] MEDS: METOPROLOL TARTRATE 12.5 MG TAB PO SCH (19:56)
[2017-01-12] MEDS: MELATONIN 3 MG TABLET PO SCH (19:56)
[2017-01-12] MEDS: CLOTRIMAZOLE/BETAMETH 1-0.05% CREAM 45 GM TUBE TOPICAL SCH (19:56)
[2017-01-12] MEDS: PRAVASTATIN SODIUM 20 MG TAB PO SCH (19:57)
[2017-01-12] MEDS: RAPAFLO 8 MG PO SCH (19:59)
[2017-01-12] MEDS: HEPARIN SODIUM,PORCINE 5,000 UNIT/ML 1 ML VIAL SQ SCH (23:06)
[2017-01-13] MEDS: KETOROLAC 30 MG/ML 1 ML VIAL IVP SCH ×5 (00:48→23:29)
[2017-01-13] MEDS: D5-0.45% NACL WITH KCL 20MEQ/L 1,000 ML IV SCH ×3 (04:42→23:34)
[2017-01-13] MEDS: METOPROLOL TARTRATE 12.5 MG TAB PO SCH ×2 (07:42→20:16)
[2017-01-13] MEDS: HEPARIN SODIUM,PORCINE 5,000 UNIT/ML 1 ML VIAL SQ SCH ×4 (07:42→23:30)
[2017-01-13] MEDS: CLOTRIMAZOLE/BETAMETH 1-0.05% CREAM 45 GM TUBE TOPICAL SCH ×2 (07:42→20:16)
[2017-01-13] MEDS: POLYETHYLENE GLYCOL 3350 17 GM POWD.PACK PO SCH (07:43)
--- NOTE | 2017-01-13 08:23 | P.CONS ---
History of Present Illness - History of Present Illness History of present illness: The patient is a 66-year-old gentleman who has had some continuous perirectal and rectal discomfort. Patient recently had a colonoscopy and at that time was thought to have had a perirectal abscess that had spontaneously drained. The patient was treated with outpatient antibiotics including Augmentin. Patient apparently has not had improvement and in fact states at times that the pain is worse. Usually occurring when he has a bowel movement. Associated with bright red rectal bleeding. It appears that he overall though has been moving his bowels better and that they are fairly well-formed. Patient has been admitted by surgery and we are asked to follow him for his medical concerns. Past medical history: 1. Patient does have history of coronary artery disease with previous coronary artery bypass and stenting. 2. Patient does have underlying chronic myopathy that was initially related to statin usage several years ago. 3. Hyperlipidemia 4. Degenerative joint disease with previous bilateral knee replacements and previous lumbar surgery. 5. BPH No history of diabetes or stroke. Medications: ALLERGIES and reactions. Patient has had nausea and vomiting with morphine in the past. Apparently he has had rash and hives with codeine and Lortab. Also has had muscle difficulties with statins. Home medications: Acetaminophen 650 mg for pain. Lotrisone cream applied daily to the perirectal area Desitin cream daily. Rapaflo 8 mg daily. Proctocort rectal suppository as needed. Pravastatin 5 mg Mondays, Wednesdays and Fridays. MiraLAX 17 g daily Preparation H as needed. Naproxen 220 mg 1 daily. Lopressor 12.5 twice a day. Aspirin 81 mg daily. Review of systems: Basically as in history of present illness. Patient denies any fever or chills. No unusual cough or phlegm production. No unusual chest pain shortness of breath. No nausea or vomiting. No new urinary difficulties. No edema. Family history: Mother recently from underlying cancer. Father had diabetes and hypertension. Also history of blood clots with his father and brother. Social history: Patient does live locally with his and is a retired schoolteacher. No history of smoking or any excessive alcohol usage. Physical examination: The patient is sitting up in bed alert and oriented. No acute distress. Temperature is 97.1 with a pulse 76 and respirations 20. Blood pressure 121/69 and he is 96% saturated on room air. Head and neck exam unremarkable. Extraocular movements intact. Neck supple without adenopathy or bruits detected. Lungs clear to auscultation and percussion. Heart tones were regular without murmurs. Abdomen is overall obese and slightly distended but no marked tenderness or masses detected. Rectal deferred to surgery. No unusual edema. Focal neurological deficits. Cranial nerves intact. Patient alert and oriented. Laboratory White count is elevated at 15.6 with a hemoglobin 17.2 and a platelet count of 240. INR is 1.1. Electrolytes were normal. BUN of 15 with creatinine 1.10 given him a GFR greater than 60. Sugars 105. Mild increase in bilirubin to 1.4 but other liver function tests were normal. Pelvic CAT scan was negative for perirectal abscess. Normal appendix. EKG done earlier this month revealed a sinus rhythm without evidence of ischemic changes. Impressions: 1. Nonhealing perirectal ulceration and pain. This is being further evaluated by surgery today. At this time I see no contraindication to the planned surgical involvement. Overall past medical history as stated above appears to be stable. Cardiovascular status stable. He has been continued on his home medications. We'll follow along with you. Please call if any questions or concerns or problems. Past Medical History Additional Past Medical History / Comment(s): elevated creatinine, hx trauma induced gout, hx lipomas, perirectal abscess History of Any Multi-Drug Resistant Organisms: None Reported Past Surgical History: Coronary Bypass/CABG, Heart Catheterization With Stent, Joint Replacement Additional Past Surgical History / Comment(s): removal of lipoma, dental implants with jaw surgery x2, tyrell knee replacements, back surgery, right toe surgery, colonoscopy Past Anesthesia/Blood Transfusion Reactions: Postoperative Nausea & Vomiting ( PONV) Additional Past Anesthesia/Blood Transfusion Reaction / Comm: PONV and unable to urinate from morphine Date of Last Stent Placement:: 10/2008 Past Psychological History: No Psychological Hx Reported Smoking Status: Never smoker Past Alcohol Use History: Rare Past Drug Use History: None Reported - Past Family History Mother Family Medical History: Cancer Father Family Medical History: Diabetes Mellitus, Deep Vein Thrombosis (DVT), Hypertension Brother(s) Family Medical History: Deep Vein Thrombosis (DVT) Medications and Allergies Home Medications Medication Instructions Recorded Confirmed Type Aspirin 81 mg PO DAILY 07/29/15 01/12/17 History Naproxen Sodium [Aleve] 220 mg PO Q24HR PRN 07/29/15 01/12/17 History L.acidoph,Paracasei, B.lactis 1 tab PO DAILY 11/26/16 01/12/17 History [Probiotic] Metoprolol Tartrate [Lopressor] 12.5 mg PO BID 11/26/16 01/12/17 History Polyethylene Glycol 3350 [Miralax] 17 gm PO DAILY 11/26/16 01/12/17 History Pravastatin Sodium [Pravachol] 5 mg PO MOWEFR 11/26/16 01/12/17 History Silodosin [Rapaflo] 8 mg PO DAILY 11/26/16 01/12/17 History Clotrimazole/Betameth Cream 1 applic TOPICAL BID 12/29/16 01/12/17 History [Lotrisone] Dimethic/Zinc Ox/Vits A,D/Aloe 1 applic TOPICAL DAILY PRN 12/29/16 01/12/17 History [A+D Zinc Oxide Cream] Phenyleph/Mineral Oil/Petrolat 1 applic RECTAL DAILY PRN 12/29/16 01/12/17 History [Preparation H Ointment] Proctocort 30 mg RECTAL BID PRN 12/29/16 01/12/17 History Zinc Oxide [Desitin] 1 applic TOPICAL DAILY PRN 12/29/16 01/12/17 History Levofloxacin [Levaquin] 500 mg PO DAILY 01/12/17 01/12/17 History Allergies Allergy/AdvReac Type Severity Reaction Status Date / Time morphine Allergy Severe Nausea & Verified 01/12/17 16:51 Vomiting/UNABLE TO URINATE acetaminophen [From Lortab] Allergy Rash/Hives Verified 01/12/17 16:51 codeine Allergy Unknown Verified 01/12/17 16:51 hydrocodone bitartrate Allergy Rash/Hives Verified 01/12/17 16:51 [From Lortab] propoxyphene napsylate Allergy Unknown Verified 01/12/17 16:51 [From Darvocet-N] Dxplktd-Qem-Klm Reductase Allergy muscle Verified 01/12/17 16:51 Inhibitor weakness,increased liver function test Physical Exam Vitals: Vital Signs Temp Pulse Resp BP Pulse Ox 01/13/17 07:00 97.1 F L 76 20 121/69 96 01/12/17 23:00 97.9 F 84 16 116/75 94 L 01/12/17 19:51 78 116/66 01/12/17 17:14 97.2 F L 104 H 18 119/79 96 Intake and Output 01/12/17 01/13/17 01/13/17 22:59 06:59 14:59 Intake Total 60 Output Total 300 Balance 60 -300 Intake: Oral 60 Output: Urine 300 Other: Weight 110.994 kg Results CBC & Chem 7: 01/12/17 17:39 01/12/17 17:39 Labs: Abnormal Lab Results - Last 24 Hours (Table) 01/12/17 01/12/17 Range/Units 17:39 17:39 WBC 15.6 H (3.8-10.6) k/uL Neutrophils # 11.3 H (1.3-7.7) k/uL Monocytes # 1.1 H (0-1.0) k/uL Glucose 105 H (74-99) mg/dL Total Bilirubin 1.4 H (0.2-1.3) mg/dL
[2017-01-13] MEDS ORDERED: TAMSULOSIN 0.4 MG CAP.ER.24H PO SCH (09:00)
[2017-01-13] MEDS: LACTOBACILLUS ACIDOPH & BULGAR 1 EACH PACKET PO SCH (11:11)
[2017-01-13] MEDS ORDERED: IV FLUID CONTINUATION 1,000 ML IV ONE (12:25)
[2017-01-13] MEDS ORDERED: BUPIVACAIN-EPI 0.25%-1:200,000 30 ML VIAL SQ ONE ×2 (12:42)
[2017-01-13] MEDS ORDERED: PROPOFOL 10 MG/ML 20 ML VIAL IV ONE (12:44)
[2017-01-13] MEDS ORDERED: KETOROLAC 30 MG/ML 1 ML VIAL ONE (12:44)
[2017-01-13] MEDS ORDERED: MIDAZOLAM 2 MG/2 ML VIAL ONE (12:44)
[2017-01-13] MEDS ORDERED: LIDOCAINE 1% INJ 10MG/ML (20 ML MDV) ONE (12:44)
[2017-01-13] MEDS ORDERED: SUCCINYLCHOLINE CHLORIDE 100 MG/5 ML SYR IV ONE (12:44)
[2017-01-13] MEDS ORDERED: LACTATED RINGERS 1,000 ML IV ONE (13:04)
[2017-01-13] MEDS: ceFAZolin 2 GM in SODIUM CHLORIDE 0.9% 100 ML IVPB STA ×2 (13:04→13:05)
--- NOTE | 2017-01-13 13:26 | P.PCN ---
Date of Procedure: 01/13/17 Procedure(s) Performed: PREOPERATIVE DIAGNOSIS: Perirectal abscess POSTOPERATIVE DIAGNOSIS: Same PROCEDURE: Incision and drainage perirectal abscess with biopsy SURGEON: Cb EBL: 10 mL ANESTHESIA: General COMPLICATIONS: None OPERATIVE PROCEDURE: Patient placed in the prone jackknife position after general anesthesia was achieved. The rectal retractors were utilized. The area was prepped in a semi-sterile condition. The patient had a defect in the posterior midline anal canal measuring about 8-9 mm. This entered into a subcutaneous perirectal with some fluctuance. There was some purulence noted. Cultures were taken. There was induration of the tissues in the perirectal location. This extended up to the level of the skin. A small elliptical incision was made in a radial fashion at about the 11 o'clock position. This tissue was sent for permanent biopsy. I also took the edges of the defect in the anal canal and this was sent for permanent sectioning as well. The area was irrigated with saline. I localized with quarter percent Marcaine solution. This radial incision that we had created in the perirectal tissues did open into the subcutaneous cavity which connected to the anal canal and a Alex drain was used superficially structures. This was sutured externally using 2 separate 2-0 silk sutures to each other as a loose seton. A Gelfoam was placed within the anal canal and distal rectum. No significant heavy bleeding was seen at that time. A outer dressing was applied. DISPOSITION: Stable to recovery room
[2017-01-13] MEDS: HYDROmorphone 1 MG/ML 1 ML SYRINGE IVP ONE ×2 (13:48→13:53)
[2017-01-13] MEDS ORDERED: fentaNYL (PF) 50 MCG/ML 2 ML AMP IV ONE (14:01)
[2017-01-13] MEDS: RAPAFLO 8 MG PO SCH (14:47)
[2017-01-13] MEDS: LEVOFLOXACIN 500MG-D5W PMX 500 MG in DEXTROSE/WATER 1 100ML.BAG IVPB SCH (20:15)
[2017-01-13] MEDS: MELATONIN 3 MG TABLET PO SCH (20:16)
[2017-01-14] MEDS: D5-0.45% NACL WITH KCL 20MEQ/L 1,000 ML IV SCH ×2 (01:30→21:55)
[2017-01-14] MEDS: KETOROLAC 30 MG/ML 1 ML VIAL IVP SCH ×3 (05:49→17:58)
[2017-01-14] MEDS: METOPROLOL TARTRATE 12.5 MG TAB PO SCH ×2 (08:01→21:47)
[2017-01-14] MEDS: HEPARIN SODIUM,PORCINE 5,000 UNIT/ML 1 ML VIAL SQ SCH ×2 (08:01→15:01)
[2017-01-14] MEDS: POLYETHYLENE GLYCOL 3350 17 GM POWD.PACK PO SCH (08:01)
[2017-01-14] MEDS: CLOTRIMAZOLE/BETAMETH 1-0.05% CREAM 45 GM TUBE TOPICAL SCH ×2 (08:02→21:52)
--- NOTE | 2017-01-14 08:17 | P.PN ---
Progress Note - Text The patient is a 66-year-old gentleman who underwent incision and drainage of a perirectal abscess yesterday by surgery, Dr. Vivar. He is sitting up in bed alert and oriented this morning. He is still having a good amount of surgical area discomfort. No chest pain or shortness of breath. No nausea or vomiting. He has had some lightheadedness with the tramadol for pain. is at bedside. Vital signs reveal temperature of 97 with a pulse of 73 and respirations 19 and unlabored. Blood pressure is 130/83 and he is 96% saturated on room air. Lung and heart exam was clear. Abdomen is nontender. And no unusual edema or new neurological changes. Impressions and plans: This patient is post incision and drainage of a perirectal abscess. Apparently he also has a lot of enlarged hemorrhoids. He does have a history of coronary artery disease and chronic myopathy and hyperlipidemia along with BPH. They appear to be stable at this time. Can progress as per surgery. Pathology and cultures are pending.
[2017-01-14 09:35] LABS: Basophils # (A) 0.1 k/uL (0-0.2); Basophils % (A) 1 %; CH 30.3; CHCM 34.3; Eosinophils # (A) 0.2 k/uL (0-0.7); Eosinophils % (A) 2 %; HCT 46.3 % (39.0-53.0); HGB 15.4 gm/dL (13.0-17.5); Luc # (Auto) 0.16; Luc % (Auto) 2; Lymphocytes % (A) 25 %; MCH 29.6 pg (25.0-35.0); MCHC 33.2 g/dL (31.0-37.0); Mean Platelet Volume 7.3; Monocytes # (A) 0.5 k/uL (0-1.0); Monocytes % (A) 6 %; Neutrophils # (A) 5.2 k/uL (1.3-7.7); Neutrophils % (A) 64 %; RDW 13.6 % (11.5-15.5); WBC 8.1 k/uL (3.8-10.6); WBC (Perox) 8.08
[2017-01-14] MEDS: LACTOBACILLUS ACIDOPH & BULGAR 1 EACH PACKET PO SCH (11:02)
--- NOTE | 2017-01-14 16:03 | P.DS ---
Providers Date of admission: 01/12/17 16:36 Attending physician: Jam Vivar Consults: 01/12/17 18:00 Consult Physician Routine Consulting Provider: Cem Da Silva Consult Reason/Comments: medical management Do you want consulting provider notified?: Yes Primary care physician: Cem Da Silva Plan - Discharge Summary New Discharge Prescriptions: Levofloxacin [Levaquin] 500 mg PO DAILY #7 tab traMADol HCL [traMADol HCL ER] 100 mg PO Q4-6H PRN #30 cap PRN Reason: Pain Discharge Medication List Aspirin 81 mg PO DAILY 07/29/15 [History] Naproxen Sodium [Aleve] 220 mg PO Q24HR PRN 07/29/15 [History] L.acidoph,Paracasei, B.lactis [Probiotic] 1 tab PO DAILY 11/26/16 [History] Metoprolol Tartrate [Lopressor] 12.5 mg PO BID 11/26/16 [History] Polyethylene Glycol 3350 [Miralax] 17 gm PO DAILY 11/26/16 [History] Pravastatin Sodium [Pravachol] 5 mg PO MOWEFR 11/26/16 [History] Silodosin [Rapaflo] 8 mg PO DAILY 11/26/16 [History] Clotrimazole/Betameth Cream [Lotrisone] 1 applic TOPICAL BID 12/29/16 [History] Dimethic/Zinc Ox/Vits A,D/Aloe [A+D Zinc Oxide Cream] 1 applic TOPICAL DAILY PRN 12/29/16 [History] Phenyleph/Mineral Oil/Petrolat [Preparation H Ointment] 1 applic RECTAL DAILY PRN 12/29/16 [History] Proctocort 30 mg RECTAL BID PRN 12/29/16 [History] Zinc Oxide [Desitin] 1 applic TOPICAL DAILY PRN 12/29/16 [History] Levofloxacin [Levaquin] 500 mg PO DAILY 01/12/17 [History] Levofloxacin [Levaquin] 500 mg PO DAILY #7 tab 01/14/17 [Rx] traMADol HCL [traMADol HCL ER] 100 mg PO Q4-6H PRN #30 cap 01/14/17 [Rx] Follow up Appointment(s)/Referral(s): Jam Vivar MD [Medical Doctor] - 1 Week Activity/Diet/Wound Care/Special Instructions: Take Sitz baths 3 to 4 times a day, Hi fiber diet, Citrate of Magnesia 8 ozs as needed for constipation.
[2017-01-14] MEDS ORDERED: LEVOFLOXACIN 500 MG TAB PO SCH (21:00)
[2017-01-14] MEDS: PRAVASTATIN SODIUM 20 MG TAB PO SCH (21:47)
[2017-01-14] MEDS: RAPAFLO 8 MG PO SCH (21:48)
[2017-01-14] MEDS: MELATONIN 3 MG TABLET PO SCH (21:52)
[2017-01-15] MEDS: HEPARIN SODIUM,PORCINE 5,000 UNIT/ML 1 ML VIAL SQ SCH ×2 (00:59→09:16)
[2017-01-15] MEDS: ACETAMINOPHEN TAB 325 MG TAB PO PRN ×2 (03:38→09:21)
[2017-01-15] MEDS: POLYETHYLENE GLYCOL 3350 17 GM POWD.PACK PO SCH (03:38)
[2017-01-15] MEDS: D5-0.45% NACL WITH KCL 20MEQ/L 1,000 ML IV SCH (06:22)
[2017-01-15 08:44] LABS: Basophils # (A) 0.1 k/uL (0-0.2); Basophils % (A) 1 %; CH 30.4; Eosinophils # (A) 0.3 k/uL (0-0.7); Eosinophils % (A) 4 %; HCT 42.9 % (39.0-53.0); HGB 14.3 gm/dL (13.0-17.5); Luc # (Auto) 0.18; Luc % (Auto) 2; Lymphocytes # (A) 1.8 k/uL (1.0-4.8); Lymphocytes % (A) 22 %; MCHC 33.4 g/dL (31.0-37.0); MCV 89.9 fL (80.0-100.0); Mean Platelet Volume 7.5; Monocytes # (A) 0.4 k/uL (0-1.0); Monocytes % (A) 5 %; Neutrophils # (A) 5.5 k/uL (1.3-7.7); Neutrophils % (A) 67 %; RBC 4.77 m/uL (4.30-5.90); RDW 13.7 % (11.5-15.5); WBC 8.2 k/uL (3.8-10.6); WBC (Perox) 8.23
[2017-01-15] MEDS: METOPROLOL TARTRATE 12.5 MG TAB PO SCH (09:17)
--- NOTE | 2017-01-15 09:29 | P.PN ---
Progress Note - Text Patient had a bowel movement this morning. Small amount of blood the with it as expected. Minimal discomfort. No fever. Vitals are good. The rectal wound is clean no excessive drainage or bleeding. The perianal area is quite soft with no evidence of gross abscess. The progressive improvement. Can be discharged from a short surgical standpoint. Continue on Levaquin as an outpatient.
[2017-01-15 09:48] VITALS: BP 126/77; PULSE 68; RESP 16; TEMP 97
[2017-01-15] MEDS: CLOTRIMAZOLE/BETAMETH 1-0.05% CREAM 45 GM TUBE TOPICAL SCH (09:51)
== END 2017-01-15 10:23 | disposition home or self-care (01) | DRG 346 ==
LOC: 4MS4W 16:36
PROVIDERS: ADMIT Surgery; ATTEND Surgery
PROC: 0JBB0ZX Excision of Perineum Subcutaneous Tissue and Fascia, Open Approach, Diagnostic (ICD-10-PCS; 2017-01-13)
PROC: 0D9P0ZZ Drainage of Rectum, Open Approach (ICD-10-PCS; principal; 2017-01-13 07:30)
DX: K61.1 Rectal abscess (principal); G72.9 Myopathy, unspecified; E78.5 Hyperlipidemia, unspecified; D72.829 Elevated white blood cell count, unspecified; I25.10 Atherosclerotic heart disease of native coronary artery without angina pectoris; K64.9 Unspecified hemorrhoids; M10.9 Gout, unspecified; N40.0 Benign prostatic hyperplasia without lower urinary tract symptoms; K59.09 Other constipation; L29.0 Pruritus ani; M19.90 Unspecified osteoarthritis, unspecified site; Z79.82 Long term (current) use of aspirin; Z79.899 Other long term (current) drug therapy; Z96.653 Presence of artificial knee joint, bilateral; Z95.5 Presence of coronary angioplasty implant and graft; Z95.1 Presence of aortocoronary bypass graft; Z88.5 Allergy status to narcotic agent; Z88.8 Allergy status to other drugs, medicaments and biological substances; Z83.3 Family history of diabetes mellitus; Z82.49 Family history of ischemic heart disease and other diseases of the circulatory system
CPT/HCPCS: 72193; 80053; 85025; 85610; 85730; 87070; 87075; 87205; 88304

== ENCOUNTER → 2017-03-11 | Outpatient (CLI) | payer MEDICARE | END | disposition home or self-care (01) | LOC: LABWHC1 06:46 | PROVIDERS: ATTEND Internal Medicine Clinical Cardiac Electrophysiology | DX: M60.9 Myositis, unspecified (principal) | CPT/HCPCS: 36415; 82088; 82550 ==

== ENCOUNTER → 2017-05-26 | Outpatient (CLI) | payer MEDICARE ==
[2017-05-26 07:54] LABS: CHCM 35.3; HCT 49.1 % (39.0-53.0); HDW 2.98; HGB 17.1 gm/dL (13.0-17.5); MCH 30.9 pg (25.0-35.0); MCHC 34.9 g/dL (31.0-37.0); MCV 88.5 fL (80.0-100.0); Mean Platelet Volume 8.3; RBC 5.55 m/uL (4.30-5.90); RDW 14.1 % (11.5-15.5); WBC 11.1 k/uL (3.8-10.6)
[2017-05-26 10:31] LABS: ALT 45 U/L (21-72); AST 40 U/L (17-59); Alkaline Phosphatase 92 U/L (38-126); Anion Gap 12 mmol/L; Blood Urea Nitrogen 22 mg/dL (9-20); Calcium 9.6 mg/dL (8.4-10.2); Carbon Dioxide 25 mmol/L (22-30); Chloride 107 mmol/L (98-107); Cholesterol 166 mg/dL (<200); Creatine Kinase 368 U/L (55-170); Glucose 97 mg/dL (74-99); HDL Cholesterol 40 mg/dL (40-60); Non-African American GFR(MDRD) >60 (>60 ml/min/1.73 sqM); Potassium 4.8 mmol/L (3.5-5.1); Sodium 144 mmol/L (137-145); Total Bilirubin 1.1 mg/dL (0.2-1.3); Total Protein 6.8 g/dL (6.3-8.2); Triglycerides 110 mg/dL (<150)
[2017-05-26 10:58] LABS: Prostate Specific Antigen 0.73 ng/mL (0.00-4.00)
== END | disposition home or self-care (01) ==
LOC: LABWHC1 06:55
PROVIDERS: ATTEND Internal Medicine
DX: E78.4 Other hyperlipidemia (principal); E87.8 Other disorders of electrolyte and fluid balance, not elsewhere classified; R53.83 Other fatigue; N40.0 Benign prostatic hyperplasia without lower urinary tract symptoms; M79.1 Myalgia
CPT/HCPCS: 36415; 80053; 80061; 82550; 84153; 85027

== ENCOUNTER → 2017-08-06 | Outpatient (CLI) | payer MEDICARE ==
[2017-08-06 07:43] LABS: CH 30.2; CHCM 34.6; HCT 51.1 % (39.0-53.0); HDW 2.92; HGB 17.5 gm/dL (13.0-17.5); MCHC 34.2 g/dL (31.0-37.0); MCV 87.6 fL (80.0-100.0); Mean Platelet Volume 7.5; RBC 5.83 m/uL (4.30-5.90); RDW 13.6 % (11.5-15.5); WBC 10.3 k/uL (3.8-10.6)
[2017-08-06 07:58] LABS: Anion Gap 9 mmol/L; Blood Urea Nitrogen 19 mg/dL (9-20); Calcium 9.5 mg/dL (8.4-10.2); Carbon Dioxide 26 mmol/L (22-30); Chloride 106 mmol/L (98-107); Cholesterol 164 mg/dL (<200); Creatine Kinase 427 U/L (55-170); Glucose 99 mg/dL (74-99); HDL Cholesterol 43 mg/dL (40-60); Non-African American GFR(MDRD) >60 (>60 ml/min/1.73 sqM); Potassium 4.7 mmol/L (3.5-5.1); Sodium 141 mmol/L (137-145)
== END | disposition home or self-care (01) ==
LOC: LABWHC1 07:04
PROVIDERS: ATTEND Internal Medicine
DX: E78.4 Other hyperlipidemia (principal); R53.83 Other fatigue; E87.8 Other disorders of electrolyte and fluid balance, not elsewhere classified; M79.1 Myalgia
CPT/HCPCS: 36415; 80048; 80061; 82550; 85027

== ENCOUNTER → 2017-12-10 | Outpatient (CLI) | payer MEDICARE ==
[2017-12-10 07:24] LABS: MCH 30.3 pg (25.0-35.0); Mean Platelet Volume 8.6; Platelet Count 196 k/uL (150-450); RBC 5.61 m/uL (4.30-5.90); RDW 14.5 % (11.5-15.5); WBC 11.2 k/uL (3.8-10.6)
[2017-12-10 07:41] LABS: Anion Gap 11 mmol/L; Blood Urea Nitrogen 24 mg/dL (9-20); Calcium 9.5 mg/dL (8.4-10.2); Carbon Dioxide 25 mmol/L (22-30); Chloride 107 mmol/L (98-107); Cholesterol 174 mg/dL (<200); Creatine Kinase 312 U/L (55-170); Glucose 107 mg/dL (74-99); HDL Cholesterol 47 mg/dL (40-60); LDL Cholesterol,Calculated 109 mg/dL (0-99); Sodium 143 mmol/L (137-145); Triglycerides 88 mg/dL (<150)
== END | disposition home or self-care (01) ==
LOC: LABWHC1 07:06
PROVIDERS: ATTEND Internal Medicine
DX: R53.83 Other fatigue (principal); E87.8 Other disorders of electrolyte and fluid balance, not elsewhere classified; E78.4 Other hyperlipidemia
CPT/HCPCS: 36415; 80048; 80061; 82550; 85027

== ENCOUNTER → 2018-05-06 | Outpatient (CLI) | payer MEDICARE | END | disposition home or self-care (01) | LOC: LABWHC1 08:03 | PROVIDERS: ATTEND Internal Medicine Clinical Cardiac Electrophysiology | DX: M60.9 Myositis, unspecified (principal) | CPT/HCPCS: 36415; 82550 ==

== ENCOUNTER → 2018-05-22 | Outpatient (CLI) | payer MEDICARE ==
[2018-05-22 07:47] LABS: HCT 52.1 % (39.0-53.0); HGB 17.3 gm/dL (13.0-17.5); MCHC 33.1 g/dL (31.0-37.0); MCV 87.7 fL (80.0-100.0); Mean Platelet Volume 7.6; Platelet Count 208 k/uL (150-450); RBC 5.94 m/uL (4.30-5.90); RDW 13.5 % (11.5-15.5); WBC 10.6 k/uL (3.8-10.6)
[2018-05-22 09:03] LABS: ALT 45 U/L (21-72); AST 33 U/L (17-59); Albumin 4.2 g/dL (3.5-5.0); Alkaline Phosphatase 69 U/L (38-126); Anion Gap 8 mmol/L; Blood Urea Nitrogen 19 mg/dL (9-20); Calcium 9.4 mg/dL (8.4-10.2); Carbon Dioxide 27 mmol/L (22-30); Chloride 106 mmol/L (98-107); Cholesterol 176 mg/dL (<200); Glucose 104 mg/dL (74-99); HDL Cholesterol 38 mg/dL (40-60); LDL Cholesterol,Calculated 105 mg/dL (0-99); Potassium 5.1 mmol/L (3.5-5.1); Sodium 141 mmol/L (137-145); Total Bilirubin 1.2 mg/dL (0.2-1.3); Total Protein 6.7 g/dL (6.3-8.2); Triglycerides 166 mg/dL (<150)
== END | disposition home or self-care (01) ==
LOC: LABWHC1 06:39
PROVIDERS: ATTEND Internal Medicine
DX: Z13.228 Encounter for screening for other metabolic disorders (principal); Z13.220 Encounter for screening for lipoid disorders; Z13.29 Encounter for screening for other suspected endocrine disorder; Z13.0 Encounter for screening for diseases of the blood and blood-forming organs and certain disorders involving the immune mechanism; Z12.5 Encounter for screening for malignant neoplasm of prostate; Z11.59 Encounter for screening for other viral diseases
CPT/HCPCS: 36415; 80053; 80061; 84153; 84443; 85027; 86803

== ENCOUNTER → 2018-09-05 | Outpatient (CLI) | payer MEDICARE ==
[2018-09-05 08:35] LABS: ALT 37 U/L (21-72); Anion Gap 9 mmol/L; Blood Urea Nitrogen 20 mg/dL (9-20); Carbon Dioxide 24 mmol/L (22-30); Chloride 110 mmol/L (98-107); Cholesterol 158 mg/dL (<200); Creatine Kinase 440 U/L (55-170); Glucose 95 mg/dL (74-99); HDL Cholesterol 39 mg/dL (40-60); LDL Cholesterol,Calculated 102 mg/dL (0-99); Potassium 4.5 mmol/L (3.5-5.1); Sodium 143 mmol/L (137-145); Triglycerides 84 mg/dL (<150)
== END | disposition home or self-care (01) ==
LOC: LABWHC1 06:49
PROVIDERS: ATTEND Internal Medicine Clinical Cardiac Electrophysiology
DX: E78.49 Other hyperlipidemia (principal); E87.8 Other disorders of electrolyte and fluid balance, not elsewhere classified; G72.9 Myopathy, unspecified
CPT/HCPCS: 36415; 80048; 80061; 82550; 84460

== ENCOUNTER → 2019-04-19 | Outpatient (CLI) | payer MEDICARE ==
[2019-04-19 07:47] LABS: Basophils # (A) 0.1 k/uL (0-0.2); Basophils % (A) 1 %; Eosinophils # (A) 0.5 k/uL (0-0.7); Eosinophils % (A) 4 %; HCT 51.8 % (39.0-53.0); HGB 16.4 gm/dL (13.0-17.5); Lymphocytes # (A) 3.3 k/uL (1.0-4.8); Lymphocytes % (A) 30 %; MCH 28.5 pg (25.0-35.0); MCHC 31.7 g/dL (31.0-37.0); MCV 89.7 fL (80.0-100.0); Mean Platelet Volume 7.7; Monocytes # (A) 0.6 k/uL (0-1.0); Monocytes % (A) 6 %; Neutrophils % (A) 56 %; Platelet Count 198 k/uL (150-450); RBC 5.77 m/uL (4.30-5.90); RDW 13.9 % (11.5-15.5); WBC 10.7 k/uL (3.8-10.6)
[2019-04-19 11:37] LABS: LDL Cholesterol,Calculated 27.2 mg/dL (0.0-131.0); VLDL Calculation 16.8 mg/dL (5.00-40.00)
== END | disposition home or self-care (01) ==
LOC: LABWHC1 06:40
PROVIDERS: ATTEND Nurse Practitioner Adult Health
DX: E78.5 Hyperlipidemia, unspecified (principal); M60.9 Myositis, unspecified; R53.83 Other fatigue
CPT/HCPCS: 36415; 80061; 82550; 85025

== ENCOUNTER → 2019-06-23 | Outpatient (CLI) | payer MEDICARE ==
[2019-06-23 11:44] LABS: Basophils # (A) 0.1 k/uL (0-0.2); Basophils % (A) 1 %; Eosinophils # (A) 0.4 k/uL (0-0.7); Eosinophils % (A) 3 %; HCT 54.1 % (39.0-53.0); HGB 17.5 gm/dL (13.0-17.5); Lymphocytes # (A) 3.3 k/uL (1.0-4.8); Lymphocytes % (A) 27 %; MCH 29.8 pg (25.0-35.0); MCHC 32.3 g/dL (31.0-37.0); Mean Platelet Volume 8.9; Monocytes # (A) 0.6 k/uL (0-1.0); Monocytes % (A) 5 %; Neutrophils # (A) 7.7 k/uL (1.3-7.7); Neutrophils % (A) 62 %; Platelet Count 209 k/uL (150-450); RBC 5.88 m/uL (4.30-5.90); RDW 15.5 % (11.5-15.5); WBC 12.3 k/uL (3.8-10.6)
[2019-06-23 16:55] LABS: African American GFR (CKD) 71.1 (60.0-200.0); Albumin 4.5 g/dL (3.80-4.90); Albumin/Globulin Ratio 2.5 (1.60-3.17); BUN/Creat Ratio 20.83 Ratio (12.00-20.00); Calcium 9.3 mg/dL (8.7-10.3); Globulin 1.8 g/dL (1.6-3.3); LDL Cholesterol,Calculated 29.2 mg/dL (0.0-131.0); Potassium 5.3 mmol/L (3.5-5.5); Total Bilirubin 0.7 mg/dL (0.2-1.2); Total Protein 6.3 g/dL (6.2-8.2); VLDL Calculation 18.8 mg/dL (5.00-40.00)
== END | disposition home or self-care (01) ==
LOC: LABWHC1 08:00
PROVIDERS: ATTEND Nurse Practitioner Family
DX: Z12.5 Encounter for screening for malignant neoplasm of prostate (principal); R35.0 Frequency of micturition; E78.5 Hyperlipidemia, unspecified; E87.8 Other disorders of electrolyte and fluid balance, not elsewhere classified; R79.9 Abnormal finding of blood chemistry, unspecified; Z13.220 Encounter for screening for lipoid disorders; Z13.228 Encounter for screening for other metabolic disorders; Z13.9 Encounter for screening, unspecified; Z12.9 Encounter for screening for malignant neoplasm, site unspecified
CPT/HCPCS: 36415; 80053; 80061; 82550; 84153; 85025

== ENCOUNTER → 2019-12-24 | Outpatient (CLI) | payer MEDICARE ==
[2019-12-24 07:13] LABS: HCT 51.1 % (39.0-53.0); HGB 16.7 gm/dL (13.0-17.5); MCH 29.1 pg (25.0-35.0); MCHC 32.6 g/dL (31.0-37.0); MCV 89.3 fL (80.0-100.0); Mean Platelet Volume 8.6; Platelet Count 223 k/uL (150-450); RBC 5.72 m/uL (4.30-5.90); RDW 13.2 % (11.5-15.5); WBC 10.4 k/uL (3.8-10.6)
[2019-12-24 16:47] LABS: African American GFR (CKD) 88.6 (60.0-200.0); Albumin 4.4 g/dL (3.80-4.90); Albumin/Globulin Ratio 2.75 (1.60-3.17); Anion Gap 4.1 mmol/L (4.00-12.00); Calcium 9.1 mg/dL (8.7-10.3); Carbon Dioxide 24.9 mmol/L (21.6-31.8); Chol/HDL Ratio 2.13; Globulin 1.6 g/dL (1.6-3.3); LDL Cholesterol,Calculated 28.8 mg/dL (0.0-131.0); Magnesium 2.1 mg/dL (1.5-2.4); Non-African American GFR(CKD) 76.5 (60.0-200.0); Potassium 4.8 mmol/L (3.5-5.5); Total Bilirubin 0.6 mg/dL (0.3-1.2); VLDL Calculation 15.2 mg/dL (5.00-40.00)
== END | disposition home or self-care (01) ==
LOC: LABWHC1 06:33
PROVIDERS: ATTEND Nurse Practitioner Adult Health
DX: I10 Essential (primary) hypertension (principal); E78.5 Hyperlipidemia, unspecified; M60.9 Myositis, unspecified
CPT/HCPCS: 36415; 80053; 80061; 82550; 82553; 83735; 85027

== ENCOUNTER → 2020-05-02 | Outpatient (CLI) | payer MEDICARE ==
[2020-05-02 09:43] LABS: HCT 53.6 % (39.0-53.0); HGB 17.4 gm/dL (13.0-17.5); MCH 29.2 pg (25.0-35.0); MCHC 32.5 g/dL (31.0-37.0); MCV 89.8 fL (80.0-100.0); Mean Platelet Volume 8.5; Platelet Count 190 k/uL (150-450); RBC 5.97 m/uL (4.30-5.90); RDW 13.5 % (11.5-15.5); WBC 13.5 k/uL (3.8-10.6)
[2020-05-02 09:44] LABS: Appearance,Urine Clear (Clear); Bilirubin,Urine Negative (Negative); Blood,Urine Negative (Negative); Color,Urine Yellow; Glucose,Urine (UA) Negative (Negative); Ketones,Urine Negative (Negative); Leukocyte Esterase,Urine Negative (Negative); Nitrite,Urine Negative (Negative); Protein,Urine Trace (Negative); Specific Gravity,Urine 1.011 (1.001-1.035); Urobilinogen,Urine <2.0 mg/dL (<2.0)
[2020-05-02 09:54] LABS: INR 0.9 (<1.2); Partial Thromboplastin Time 23.2 sec (22.0-30.0); Prothrombin Time 9.7 sec (9.0-12.0)
[2020-05-02 09:59] LABS: Albumin 4.5 g/dL (3.5-5.0); Calcium 9.9 mg/dL (8.4-10.2); Potassium 4.8 mmol/L (3.5-5.1); Total Bilirubin 1.3 mg/dL (0.2-1.3); Total Protein 7.1 g/dL (6.3-8.2)
== END | disposition home or self-care (01) ==
LOC: LABPAT 08:27
PROVIDERS: ATTEND Orthopaedic Surgery
DX: Z01.818 Encounter for other preprocedural examination (principal); Z01.812 Encounter for preprocedural laboratory examination; U07.1 COVID-19; Z79.01 Long term (current) use of anticoagulants
CPT/HCPCS: 80053; 85027; 85610; 85730; 81003; 87070; U0003; 86850; 86900; 86901

== ENCOUNTER → 2020-05-02 | Outpatient (CLI) | payer MEDICARE ==
[2020-05-02 17:15] LABS: Chol/HDL Ratio 2.41; LDL Cholesterol,Calculated 28.8 mg/dL (0.0-131.0); Magnesium 2.2 mg/dL (1.5-2.4); VLDL Calculation 29.2 mg/dL (5.00-40.00)
== END | disposition home or self-care (01) ==
LOC: LABWHC1 08:31
PROVIDERS: ATTEND Nurse Practitioner Adult Health
DX: I10 Essential (primary) hypertension (principal); M60.9 Myositis, unspecified; E78.5 Hyperlipidemia, unspecified
CPT/HCPCS: 36415; 80061; 82550; 83735

== ENCOUNTER 2020-05-05 05:43 | Day surgery (SDC) | payer MEDICARE ==
[2020-05-01 14:35] VITALS: BMI 31.6
[~2020-05-05 05:43] MED LIST changes: -DEXAMETHASONE SOD PHOSPHATE 10 MG/ML 1 ML VIAL IV ONE; +GABAPENTIN 300 MG CAP PO ONE; -HEPARIN SODIUM,PORCINE 5,000 UNIT/ML 1 ML VIAL SQ ONE; +HYDROmorphone 0.5 MG/0.5 ML SYRINGE IVP PRN; -LACTATED RINGERS 1,000 ML IV SCH; +LIDOCAINE 1% (10MG/ML) FOR IV START INTRADERMA PRN; +MELOXICAM 7.5 MG TAB PO ONE; -MIDAZOLAM 2 MG/2 ML VIAL IV PRN; -Pre Op ABX Message 1 EACH MISC MISCELLANE ONE; -SCOPOLAMINE 1.5MG/72HR PATCH TRANSDERM ONE; +TRANEXAMIC ACID 1,000 MG in SODIUM CHLORIDE 0.9% 100 ML IVPB ONE; +ceFAZolin 3 GM in SODIUM CHLORIDE 0.9% 100 ML IVPB ONE
[2020-05-05] MEDS: ACETAMINOPHEN TAB 500 MG TAB PO ONE ×2 (05:50→05:54)
[2020-05-05] MEDS: LACTATED RINGERS 1,000 ML IV SCH (06:21)
[2020-05-05] MEDS ORDERED: MIDAZOLAM 2 MG/2 ML VIAL ONE (06:53)
[2020-05-05] MEDS ORDERED: NEOSTIGMINE 1 MG/ML 10 ML VIAL ONE (06:53)
[2020-05-05] MEDS ORDERED: ePHEDrine SULFATE/0.9% NACL/PF 50 MG/5 ML SYRINGE IV ONE (06:53)
[2020-05-05] MEDS ORDERED: ROCURONIUM BROMIDE 10 MG/ML 5 ML VIAL IV ONE (06:53)
[2020-05-05] MEDS ORDERED: PROPOFOL 10 MG/ML 20 ML VIAL IV ONE (06:53)
[2020-05-05] MEDS ORDERED: SUCCINYLCHOLINE CHLORIDE VIAL 200 MG/10 ML VIAL IV ONE (06:53)
[2020-05-05] MEDS ORDERED: LIDOCAINE 1% INJ 10MG/ML (20 ML MDV) ONE (06:53)
[2020-05-05] MEDS ORDERED: SODIUM CHLORIDE 0.9% 100 ML BAG ONE (06:53)
[2020-05-05] MEDS ORDERED: KETOROLAC 30 MG/ML 1 ML VIAL ONE (06:53)
[2020-05-05] MEDS ORDERED: ACETAMINOPHEN IV (For NPO) 1,000 MG/100 ML VIAL ONE (06:53)
[2020-05-05] MEDS ORDERED: TRANEXAMIC ACID 1,000 MG/10 ML VIAL ONE (06:53)
[2020-05-05] MEDS ORDERED: DIAZEPAM 5 MG TAB PO PRN (07:01)
[2020-05-05] MEDS ORDERED: ONDANSETRON 4 MG/2 ML VIAL IVP PRN (07:01)
[2020-05-05] MEDS ORDERED: HYDROcodone/APAP 5-325MG 1 EACH TAB PO PRN ×2 (07:01)
[2020-05-05] MEDS ORDERED: NALOXONE 0.4 MG/ML 1 ML VIAL IV PRN (07:01)
[2020-05-05] MEDS ORDERED: hydrOXYzine PAMOATE 25 MG CAP PO PRN (07:01)
[2020-05-05] MEDS ORDERED: MAGNESIUM HYDROXIDE 2,400 MG/10 ML CUP PO PRN (07:01)
[2020-05-05] MEDS ORDERED: HYDROmorphone 0.5 MG/0.5 ML SYRINGE IVP PRN ×2 (07:01)
[2020-05-05] MEDS ORDERED: traMADol 50 MG TAB PO PRN ×2 (07:06)
[2020-05-05] MEDS ORDERED: ceFAZolin 3,000 MG in SODIUM CHLORIDE 0.9% IRRIGATIO 3,000 ML IRRIGATION ONE (07:18)
[2020-05-05] MEDS: ROPIVACAINE 246.25 MG, EPINEPHrine 0.5 MG, KETOROLAC 30 MG, cloNIDine HCL/PF 80 MCG, WA... MISCELLANE ONE ×10 (07:21→08:18)
[2020-05-05] MEDS ORDERED: LACTATED RINGERS 1,000 ML IV ONE ×3 (07:41→11:00)
--- NOTE | 2020-05-05 08:36 | XR ---
Limited right hip HISTORY: Anterior hip replacement 2 intraoperative C-arm images document the procedure.
--- NOTE | 2020-05-05 08:48 | P.OP ---
Date of Procedure: 05/05/20 Preoperative Diagnosis: Severe osteoarthritis right hip Postoperative Diagnosis: Severe osteoarthritis right hip Procedure(s) Performed: Right total hip arthroplasty with a direct anterior approach Implants: Harris and nephew Polarstem size 8 standard Harris & Nephew R3, 3 hole acetabular shell, 58 mm Harris & Nephew reflection 6.5 mm cancellus screw, 25 mm 2 Harris & Nephew R3, XLPE 20 acetabular liner Harris & Nephew Oxinium femoral head 36 m, +4 All components were press-fit. The articulation is Oxinium on polyethylene. Anesthesia: GETA Surgeon: Kit Hamilton Inspecting Engineer #1: Iveth Jimenez Estimated Blood Loss (ml): 200 (64 mL returned with Cell Saver) Pathology: other (Femoral head) Condition: stable Disposition: PACU Indications for Procedure: After failure of conservative treatment we discussed the surgical and nonsurgical treatment options at length. Patient wishes to proceed with a total hip arthroplasty with a direct anterior approach. Complications specific to this procedure were discussed at length, including but not limited to infection, leg length discrepancy, dislocation, and nerve injury. Covid-19 was also discussed at length with the patient, and they are aware of the current policies and procedures. The patient was given the option of delaying surgery, but they elect to proceed knowing these risks. Patient is aware of all these complications and informed consent was obtained Operative Findings: The operative findings are consistent with severe osteoarthritis of the right hip Description of Procedure: Patient was seen and evaluated in the preoperative area, consent was reviewed, and the surgical site was marked with a skin marker. Patient was then brought to the operating room and given prophylactic antibiotics intravenously. 1 g of Tranexamic acid was also given. A spinal anesthetic was attempted by the anesthesia department, but did not set up and time, so a general anesthetic was administered. The patient was then placed on the [place] table with the bony prominences well-padded. The hip area was then prepped and draped in usual sterile fashion. A universal timeout was then performed, which confirmed the patient's name, surgical site, ALLERGIES, and procedure being performed. Next the incision site was located at 1 cm distal and 1 cm lateral to the anterior superior iliac spine. The skin and subcutaneous tissues were sharply incised. Incision was carefully dissected down to the fascia overlying the tensor fascia fawn muscle. This fascia was then incised in line with the incision. Next, using blunt finger dissection, the tensor fascia fawn muscle was dissected off its investing fascia. The muscle was then carefully retracted laterally with a cobra retractor over the lateral neck of the femur. Next, the circumflex vessels were identified and cauterized using the AquaMantis device. The anterior hip capsule was then exposed. The capsule was then opened and an inverted T fashion. Cobra retractors were then placed intracapsularly. The proximal femur was then visualized. The femoral neck was then osteotomized appropriate level above the lesser trochanter. Small amount of traction was placed with the [place] table. A small wedge of bone was then removed from the remaining femoral head. Next, using a corkscrew femoral head was easily removed from the acetabulum. On gross visual inspection, the femoral head had complete loss of articular cartilage in multiple periarticular osteophytes. Attention was then turned to the acetabulum. the acetabulum was exposed and any remaining labrum was excised. Sequential reaming of the acetabulum was performed using fluoroscopic guidance. When the appropriate size was reached, a trial was then placed. The position and fit of the trial was checked with fluoroscopy. The trial was then removed. Then, using fluoroscopic guidance, the final implant was impacted at 20 of anteversion and 40 of abduction, and fully seated in the acetabulum. 2 screws were then placed in the acetabulum. Again fluoroscopy was used to check position of the screws. Next, the liner was then impacted, with a 20 elevated liner located in the anterior superior quadrant. Component locking was confirmed. Attention was then directed to the femur. With the aid of the [place] table, the femur was externally rotated to approximately 130, extended, and abducted under the opposite leg. A side hook was then placed under the proximal femur, and the side hook elevator was used to elevate the proximal femur. Retractors were then placed. A capsular release was performed, as well as a release of the conjoined tendon, which afforded excellent visualization of the proximal femur. Next, a box osteotome was used to lateralize the proximal femur. A paper handler was then used to locate the femoral canal. Sequential broaching was then performed with appropriate size which afforded excellent fixation in the proximal femur. A trial was then placed with appropriate head and neck, and the hip was gently reduced with the aid of the [place] table. Fluoroscopy was then used to check position of the components, as well as to ensure equal leg lengths. The hip was then gently dislocated and the trials were then removed. Final implants were then impacted and the hip was again reduced. Final fluoroscopic x-rays confirmed that the components were in anatomic position, as well as equal leg lengths. The hip was also taken through range of motion, and found to be stable. The hip was then copiously irrigated with antibiotic solution with pulsatile lavage. The hip was then irrigated with Irrisept solution. The soft tissues were then injected with a ropivacaine solution, which consisted of 246.25 mg of ropivacaine, 0.5 mg of epinephrine, 30 mg of Toradol, 80 g of clonidine, and 48.45 mL of sterile water, for a total of 100 mL of fluid injected. A second dose of 1 g of Tranexamic acid was also given. the fascia was then closed with 2-0 strata fix suture. The subcutaneous tissue was closed with 3-0 Vicryl. The subcuticular tissue was closed with 3-0 strata fix suture. The skin was then closed with Dermabond glue and a sterile silver dressing. The patient was then transferred to the recovery room in stable condition. The perioperative assistant LASHON Rodas was required due to the complexity of surgery, and the need for skilled rn surgical pcu for positioning, draping, exposure, retraction, and closure of the wound.
--- NOTE | 2020-05-05 09:38 | XR ---
EXAMINATION TYPE: XR Hip Limited RT DATE OF EXAM: 05/05/2020 CLINICAL HISTORY: Right hip pain and osteoarthritis. TECHNIQUE: Single AP portable view of right hip is obtained immediately postoperatively. COMPARISON: None. FINDINGS: Metallic hardware from right hip arthroplasty is seen and appears satisfactory in alignment and position. There is evidence of recent surgery with subcutaneous gas noted laterally. IMPRESSION: Metallic hardware from right hip arthroplasty is satisfactory in position.
--- NOTE | 2020-05-05 12:36 | FL ---
Fluoroscopy HISTORY: Anterior hip replacement 41 seconds fluoroscopy time supplied to the referring clinician. 2 intraoperative C-arm images docum ent the procedure. See dictated report from orthopedic surgery.
[2020-05-05] MEDS: SODIUM CHLORIDE 0.9% 1,000 ML IV SCH ×2 (13:28→22:49)
[2020-05-05] MEDS: ceFAZolin 3 GM in SODIUM CHLORIDE 0.9% 100 ML IVPB SCH (15:15)
--- NOTE | 2020-05-05 17:31 | P.CONS ---
History of Present Illness - Reason for Consult Consult date: 05/05/20 Medical management Requesting physician: Kit Hamilton - Chief Complaint Medical management - History of Present Illness 70-year-old male with PMH of CAD post CABG in 2016, dyslipidemia, BPH presents to [facility] for elective surgery. He underwent right total hip arthroplasty with direct anterior approach. Patient was seen and examined after his procedure. Patient reports numbness in his buttocks bilaterally related to anesthesia he received prior to his procedure. Patient states that his numbness is progressively getting better. He complains of urinary retention and inability to urinate. He denies any abdominal pain. Patient reports pinching sensation in the right anterior hip. Patient denies any headache, lower extremity edema, nausea or vomiting, fever or chills, cough, chest pain, shortness breath, palpitations, changes in bowel habits. No changes in appetite or weight. He denies any dizziness, numbness/weakness/tingling of the extremities. His vital signs are currently unremarkable. There is no blood work from today. Review of Systems Pertinent positives and negatives as discussed in HPI, a complete review of systems was performed and all other systems are negative. Past Medical History Past Medical History: Hyperlipidemia, Hypertension, Osteoarthritis (OA) Additional Past Medical History / Comment(s): elevated creatinine, hx trauma induced gout, hx lipomas, perirectal abscess History of Any Multi-Drug Resistant Organisms: None Reported Past Surgical History: Coronary Bypass/CABG, Heart Catheterization With Stent, Joint Replacement Additional Past Surgical History / Comment(s): removal of lipoma, dental implants with jaw surgery x2, tyrell knee replacements, back surgery, right toe surgery, colonoscopy Past Anesthesia/Blood Transfusion Reactions: Postoperative Nausea & Vomiting (PONV) Additional Past Anesthesia/Blood Transfusion Reaction / Comm: PONV and unable to urinate from morphine Date of Last Stent Placement:: 10/2008 Past Psychological History: No Psychological Hx Reported Smoking Status: Never smoker Past Alcohol Use History: Rare Past Drug Use History: None Reported - Past Family History Mother Family Medical History: Cancer Father Family Medical History: Diabetes Mellitus, Deep Vein Thrombosis (DVT), Hypertension Brother(s) Family Medical History: Deep Vein Thrombosis (DVT) Medications and Allergies Home Medications Medication Instructions Recorded Confirmed Type Aspirin 81 mg PO DAILY 07/29/15 05/05/20 History Naproxen Sodium [Aleve] 220 mg PO Q24HR PRN 07/29/15 05/05/20 History Polyethylene Glycol 3350 [Miralax] 17 gm PO DAILY PRN 11/26/16 05/05/20 History Pravastatin Sodium [Pravachol] 5 mg PO SUWEFR 11/26/16 05/05/20 History Silodosin [Rapaflo] 8 mg PO DAILY 11/26/16 05/05/20 History Alirocumab [Praluent Pen] 75 mg SQ Q14D 05/01/20 05/05/20 History Atenolol [Tenormin] 12.5 mg PO DAILY 05/01/20 05/05/20 History Allergies Allergy/AdvReac Type Severity Reaction Status Date / Time morphine Allergy Severe Nausea & Verified 05/01/20 12:43 Vomiting/UNABLE TO URINATE acetaminophen [From Lortab] Allergy Rash/Hives Verified 05/01/20 12:43 codeine Allergy Unknown Verified 05/01/20 12:43 hydrocodone bitartrate Allergy Rash/Hives Verified 05/01/20 12:43 [From Lortab] propoxyphene napsylate Allergy Unknown Verified 05/01/20 12:43 [From Darvocet-N] Lzlxnyr-Drl-Wea Reductase AdvReac muscle Verified 05/01/20 12:43 Inhibitor weakness,increased liver function test dissolveable polysorb suture AdvReac red skin Uncoded 05/01/20 12:46 Physical Exam Vitals: Vital Signs Temp Pulse Pulse Pulse Resp BP BP 05/05/20 13:53 97.4 F L 86 16 107/65 05/05/20 13:15 80 16 102/72 05/05/20 12:39 78 16 104/77 05/05/20 12:15 82 16 103/71 05/05/20 11:45 77 16 97/67 05/05/20 11:15 79 16 95/61 05/05/20 10:45 73 16 101/65 05/05/20 10:15 80 16 91/61 05/05/20 09:45 75 16 101/73 05/05/20 09:22 77 16 119/84 05/05/20 09:07 78 16 127/70 05/05/20 08:52 96.8 F L 84 20 145/83 06/08/20 06:03 95.5 F L 79 18 124/73 Pulse Ox 05/05/20 13:53 96 05/05/20 13:15 96 05/05/20 12:39 94 L 05/05/20 12:15 97 05/05/20 11:45 97 05/05/20 11:15 96 05/05/20 10:45 95 05/05/20 10:15 96 05/05/20 09:45 100 05/05/20 09:22 100 05/05/20 09:07 100 05/05/20 08:52 93 L 05/05/20 06:03 96 Intake and Output 05/05/20 05/05/20 05/05/20 06:59 14:59 22:59 Intake Total 900 1301 Output Total 200 Balance 900 1101 Intake: IV 900 1301 Output: Estimated Blood Loss 200 Other: Voiding Method Urinal Weight 129 kg 129 kg General: [non toxic], [no distress], [appears at stated age] Derm: [warm], [dry] Head: [atraumatic], [normocephalic], [symmetric] Eyes: [EOMI], [no lid lag], [anicteric sclera] Mouth: [no lip lesion], [mucus membranes moist] Cardiovascular: [S1S2 reg], [no murmur], [positive DP pulse bilateral], Lungs: [CTA bilateral], [no rhonchi, no rales] , [no accessory muscle use] Abdominal: [soft], [ nontender to palpation], [no guarding], [no appreciable organomegaly] Ext: [no gross muscle atrophy], [no edema], [no contractures], [right hip dressing clean dry and intact with minimal swelling and no erythema] Neuro: [ CN II-XI grossly intact], [no focal neuro deficits] Psych: [Alert], [oriented], [appropriate affect] Assessment and Plan Assessment: CAD post CABG BPH with urinary retention Dyslipidemia Osteoarthritis post right hip arthroplasty POD 0 We will restart aspirin, atenolol and pravastatin for his history of CAD. He will be started on a heart healthy diet. Patient has not been able to urinate since his surgical procedure. We'll restart his home medication of Rapaflow. Discussed with nursing, plans to check bladder scan if patient continues to have difficulty with urination. He sees Dr. Proctor in the outpatient setting. Pravastatin be restarted for history of dyslipidemia. Patient's pain management is being managed by orthopedic surgery. He does report an ALLERGY to morphine and other opiates (nausea and vomiting). It would be best to avoid Dilaudid at this time. He is on SCD boots for DVT prophylaxis. Thank you for this consult. Please call with any additional questions or concerns.
[2020-05-05] MEDS ORDERED: SENNOSIDES-DOCUSATE SODIUM 1 EACH TAB PO SCH (21:00)
[2020-05-05] MEDS: HYDROmorphone 0.5 MG/0.5 ML SYRINGE IVP PRN (21:25)
[2020-05-06] MEDS: ceFAZolin 3 GM in SODIUM CHLORIDE 0.9% 100 ML IVPB SCH (00:50)
[2020-05-06] MEDS: HYDROmorphone 0.5 MG/0.5 ML SYRINGE IVP PRN (00:53)
[2020-05-06 01:06] VITALS: TEMP 97.9
[2020-05-06] MEDS ORDERED: CALCIUM CARBONATE 500 MG CHEWABLE PO PRN (05:59)
[2020-05-06] MEDS: LACTATED RINGERS 1,000 ML IV SCH (06:44)
[2020-05-06 07:36] VITALS: BP 136/77; PULSE 96; RESP 16
[2020-05-06 07:50] LABS: Basophils # (A) 0.1 k/uL (0-0.2); Basophils % (A) 0 %; Eosinophils # (A) 0.1 k/uL (0-0.7); Eosinophils % (A) 1 %; HCT 45.5 % (39.0-53.0); HGB 14.5 gm/dL (13.0-17.5); Lymphocytes # (A) 2.2 k/uL (1.0-4.8); Lymphocytes % (A) 15 %; MCH 28.9 pg (25.0-35.0); MCHC 31.9 g/dL (31.0-37.0); MCV 90.9 fL (80.0-100.0); Mean Platelet Volume 8.3; Monocytes # (A) 1.3 k/uL (0-1.0); Monocytes % (A) 9 %; Neutrophils # (A) 11.3 k/uL (1.3-7.7); Neutrophils % (A) 74 %; Platelet Count 171 k/uL (150-450); RBC 5.01 m/uL (4.30-5.90); RDW 13.5 % (11.5-15.5); WBC 15.2 k/uL (3.8-10.6)
[2020-05-06] MEDS ORDERED: SILODOSIN PO SCH (09:00)
[2020-05-06] MEDS ORDERED: TAMSULOSIN 0.4 MG CAP.ER.24H PO SCH (09:00)
[2020-05-06] MEDS ORDERED: ATENOLOL 25 MG TAB PO SCH (09:00)
[2020-05-06] MEDS ORDERED: ASPIRIN 81 MG PO SCH (09:00)
[2020-05-06] MEDS ORDERED: Acetaminophen-Codeine 300-30mg TAB PO PRN ×2 (09:05)
[2020-05-06] MEDS ORDERED: ACETAMINOPHEN TAB 500 MG TAB PO PRN (09:23)
--- NOTE | 2020-05-06 11:14 | P.DS ---
Providers Expected date of discharge: 05/06/20 Attending physician: Kit Hamilton Consults: 05/05/20 07:01 Consult Physician Routine Consulting Provider: Junie Paec Consult Reason/Comments: medical management Do you want consulting provider notified?: Yes Primary care physician: Vale Whaley - Discharge Diagnosis(es) (1) Osteoarthritis of right hip Status: Acute (2) Status post total hip replacement, right Status: Acute Hospital Course: This is a 70-year-old male with known history of degenerative arthritis of the right hip. The patient presents for evaluation. After discussion and consideration patient elects to proceed with total hip arthroplasty. The patient is seen preoperatively by Dr. Hamilton and medically cleared for surgery by their primary care physician. Patient is admitted to [facility] on 05/05/2020 for total hip arthroplasty. The procedures performed without complication or sequelae. The patient is doing well postoperatively. Labs and vital signs are stable on day of discharge. On day of discharge patient's hip incision is healing well. There is minimal erythema. There is no drainage noted at this time. There is minimal soft tissue swelling to the hip and thigh. Patient has full foot and ankle motion without difficulty or pain. Calf is soft and nontender to palpation. Neurovascular status to the right lower extremity is intact. Patient is discharged home in good condition. Please see med rec for accurate list of home medications. Plan - Discharge Summary Discharge Rx Participant: No New Discharge Prescriptions: New Aspirin 325 mg PO BID #60 tab Sennosides [Senokot] 2 tab PO DAILY PRN #60 tablet PRN Reason: Constipation Acetaminophen-Codeine 300-30mg [Tylenol #3] 1 - 2 tab PO Q6H PRN #56 tablet PRN Reason: Pain No Action Aspirin 81 mg PO DAILY Naproxen Sodium [Aleve] 220 mg PO Q24HR PRN PRN Reason: Pain Pravastatin Sodium [Pravachol] 5 mg PO SUWEFR Polyethylene Glycol 3350 [Miralax] 17 gm PO DAILY PRN PRN Reason: Constipation Silodosin [Rapaflo] 8 mg PO DAILY Atenolol [Tenormin] 12.5 mg PO DAILY Alirocumab [Praluent Pen] 75 mg SQ Q14D Discharge Medication List Aspirin 81 mg PO DAILY 07/29/15 [History] Naproxen Sodium [Aleve] 220 mg PO Q24HR PRN 07/29/15 [History] Polyethylene Glycol 3350 [Miralax] 17 gm PO DAILY PRN 11/26/16 [History] Pravastatin Sodium [Pravachol] 5 mg PO SUWEFR 11/26/16 [History] Silodosin [Rapaflo] 8 mg PO DAILY 11/26/16 [History] Alirocumab [Praluent Pen] 75 mg SQ Q14D 05/01/20 [History] Atenolol [Tenormin] 12.5 mg PO DAILY 05/01/20 [History] Acetaminophen-Codeine 300-30mg [Tylenol #3] 1 - 2 tab PO Q6H PRN #56 tablet 05/06/20 [Rx] Aspirin 325 mg PO BID #60 tab 05/06/20 [Rx] Sennosides [Senokot] 2 tab PO DAILY PRN #60 tablet 05/06/20 [Rx] Follow up Appointment(s)/Referral(s): [facility] - Kit Hamilton DO [Doctor of Osteopathic Medicine] - 05/21/20 9:05 am Vale Whaley MD [Primary Care Provider] - 05/14/20 2:00 pm (with July) Patient Instructions/Handouts: Osteoarthritis (DC), Revision Total Joint Arthroplasty (DC) Activity/Diet/Wound Care/Special Instructions: Weightbearing as tolerated with walker. Leave dressing intact. Dressing may be removed by home care nurse or by patient in 10 days. May shower with dressing on. Recommend use of compression stockings daily for at least 2 weeks during the day to help prevent swelling and blood clots. May remove at night before sleeping. Please follow-up with [facility] in 2 weeks and call with any questions or concerns, . Discharge Disposition: HOME WITH HOME HEALTH SERVICES
[2020-05-07] MEDS ORDERED: PRAVASTATIN SODIUM 20 MG TAB PO SCH (21:00)
== END 2020-05-06 10:42 | disposition home health service (06) ==
LOC: OR 05:43 → 4SSUR 08:51 → OR 05-06 10:42
PROVIDERS: ATTEND Orthopaedic Surgery
DX: M16.11 Unilateral primary osteoarthritis, right hip (principal); I51.9 Heart disease, unspecified; H91.90 Unspecified hearing loss, unspecified ear; R26.81 Unsteadiness on feet; I25.2 Old myocardial infarction; I35.1 Nonrheumatic aortic (valve) insufficiency; Z97.3 Presence of spectacles and contact lenses; Z96.653 Presence of artificial knee joint, bilateral; G72.9 Myopathy, unspecified; N40.1 Benign prostatic hyperplasia with lower urinary tract symptoms; R33.8 Other retention of urine; Z95.1 Presence of aortocoronary bypass graft; Z97.2 Presence of dental prosthetic device (complete) (partial); Z83.3 Family history of diabetes mellitus; I25.10 Atherosclerotic heart disease of native coronary artery without angina pectoris; I10 Essential (primary) hypertension; I25.5 Ischemic cardiomyopathy; E78.49 Other hyperlipidemia; E66.9 Obesity, unspecified; Z68.32 Body mass index [BMI] 32.0-32.9, adult; Z95.5 Presence of coronary angioplasty implant and graft; Z82.49 Family history of ischemic heart disease and other diseases of the circulatory system; Z79.1 Long term (current) use of non-steroidal anti-inflammatories (NSAID); Z79.82 Long term (current) use of aspirin; Z79.899 Other long term (current) drug therapy; Z88.5 Allergy status to narcotic agent; Z88.8 Allergy status to other drugs, medicaments and biological substances; Z91.048 Other nonmedicinal substance allergy status; Z91.09 Other allergy status, other than to drugs and biological substances
CPT/HCPCS: 97110; 97161; 86900; 86901; 86850; 73501; 27130; C1776; J0171; J0690 ×2; J2405; J1885; J2795; J0735; J1170; 85025; 88300

== ENCOUNTER → 2020-11-10 | Outpatient (CLI) | payer MEDICARE ==
--- NOTE | 2020-11-10 13:22 | US ---
EXAMINATION TYPE: US venous doppler duplex LE LT DATE OF EXAM: 11/10/2020 1:13 PM COMPARISON: NONE CLINICAL HISTORY: L03.90 CELLULITIS. Left ankle swelling. No hx DVT. SIDE PERFORMED: Left TECHNIQUE: The lower extremity deep venous system is examined utilizing real time linear array sonog tawnya with graded compression, doppler sonography and color-flow sonography. VESSELS IMAGED: Common Femoral Vein Deep Femoral Vein Greater Saphenous Vein * Femoral Vein Popliteal Vein Small Saphenous Vein * Proximal Calf Veins (* superficial vessels) Left Leg: Negative for DVT IMPRESSION: No evidence of DVT
--- NOTE | 2020-11-10 13:50 | XR ---
EXAMINATION TYPE: XR ankle complete LT DATE OF EXAM: 11/10/2020 CLINICAL HISTORY: Pain and swelling. TECHNIQUE: Frontal, lateral and oblique images of the left ankle are obtained. COMPARISON: None. FINDINGS: There is no acute fracture/dislocation evident in the left ankle. The ankle mortise appea rs within normal limits. Small inferior calcaneal spur. [id number] soft tissue swelling over th e lateral malleolus. The overlying soft tissue appears unremarkable. IMPRESSION: As above.
== END | disposition home or self-care (01) ==
LOC: RADUSWWP 12:56
PROVIDERS: ATTEND Family Medicine
DX: M77.32 Calcaneal spur, left foot (principal); M79.89 Other specified soft tissue disorders

== ENCOUNTER → 2020-12-30 | Outpatient (CLI) | payer MEDICARE ==
[2020-12-30 14:54] LABS: Basophils # (A) 0.09 X 10*3/uL (0.00-0.10); Basophils % (A) 0.7 %; Eosinophils # (A) 0.66 X 10*3/uL (0.04-0.35); HCT 53.3 % (39.6-50.0); HGB 17.3 g/dL (13.0-17.0); Lymphocytes % (A) 30.1 %; MCH 29.2 pg (27.0-32.0); MCHC 32.5 g/dL (32.0-37.0); MCV 89.9 fL (80.0-97.0); Mean Platelet Volume 11.5 fL (9.5-12.2); Monocytes # (A) 0.96 X 10*3/uL (0.20-1.00); Monocytes % (A) 7.2 %; Neutrophils # (A) 7.42 X 10*3/uL (1.80-7.70); Neutrophils % (A) 55.9 %; Platelet Count 217 X 10*3/uL (140-440); RBC 5.93 X 10*6/uL (4.40-5.60); RDW 13.4 % (11.5-14.5); WBC 13.27 X 10*3/uL (4.50-10.00)
[2020-12-30 17:21] LABS: Hemoglobin A1C 5.5 % (4.0-6.0)
== END | disposition home or self-care (01) ==
LOC: LABWHC1 07:57
PROVIDERS: ATTEND Nurse Practitioner Family
DX: E78.2 Mixed hyperlipidemia (principal); R53.83 Other fatigue; I10 Essential (primary) hypertension; E87.8 Other disorders of electrolyte and fluid balance, not elsewhere classified; E11.9 Type 2 diabetes mellitus without complications; E55.9 Vitamin D deficiency, unspecified
CPT/HCPCS: 36415; 82306; 83036; 84443; 85025

== ENCOUNTER → 2021-06-13 | Outpatient (CLI) | payer MEDICARE | END | disposition home or self-care (01) | LOC: LABWHC1 08:01 | PROVIDERS: ATTEND Internal Medicine Clinical Cardiac Electrophysiology | DX: M60.9 Myositis, unspecified (principal); Z79.2 Long term (current) use of antibiotics | CPT/HCPCS: 36415; 82550 ==

== ENCOUNTER → 2021-07-09 | Outpatient (CLI) | payer MEDICARE ==
--- NOTE | 2021-07-09 07:31 | XR ---
EXAMINATION TYPE: XR chest 2V DATE OF EXAM: 07/09/2021 COMPARISON: 12/29/2016 HISTORY: 71 year-old male shortness of breath TECHNIQUE: Frontal and lateral views FINDINGS: Median sternotomy wires are present. Heart upper limits of normal in size. Mild elongation thoracic a iqra. Some strandy atelectasis in lower lungs. No consolidation or pleural effusion. IMPRESSION: Some strandy atelectasis. No acute process seen.
[2021-07-09 07:46] LABS: Appearance,Urine Clear (Clear); Bilirubin,Urine Negative (Negative); Blood,Urine Negative (Negative); Color,Urine Yellow; Glucose,Urine (UA) Negative (Negative); Ketones,Urine Negative (Negative); Leukocyte Esterase,Urine Negative (Negative); Nitrite,Urine Negative (Negative); Protein,Urine Negative (Negative); Specific Gravity,Urine 1.022 (1.001-1.035); Urobilinogen,Urine <2.0 mg/dL (<2.0)
[2021-07-09 11:19] LABS: Basophils # (A) 0.06 X 10*3/uL (0.00-0.10); Basophils % (A) 0.6 %; Eosinophils # (A) 0.42 X 10*3/uL (0.04-0.35); Eosinophils % (A) 3.9 %; HCT 50.2 % (39.6-50.0); HGB 16.3 g/dL (13.0-17.0); Lymphocytes # (A) 3.51 X 10*3/uL (0.90-5.00); Lymphocytes % (A) 32.4 %; MCH 29.3 pg (27.0-32.0); MCHC 32.5 g/dL (32.0-37.0); MCV 90.3 fL (80.0-97.0); Mean Platelet Volume 11.5 fL (9.5-12.2); Monocytes # (A) 0.85 X 10*3/uL (0.20-1.00); Monocytes % (A) 7.8 %; Neutrophils # (A) 5.95 X 10*3/uL (1.80-7.70); Neutrophils % (A) 54.8 %; Platelet Count 194 X 10*3/uL (140-440); RBC 5.56 X 10*6/uL (4.40-5.60); RDW 13.5 % (11.5-14.5); WBC 10.84 X 10*3/uL (4.50-10.00)
[2021-07-10 01:32] LABS: African American GFR (CKD) 77.9 (60.0-200.0); Albumin 4.2 g/dL (3.80-4.90); Albumin/Globulin Ratio 1.91 (1.60-3.17); Anion Gap 8.9 mmol/L (4.00-12.00); BUN/Creat Ratio 18.18 Ratio (12.00-20.00); Calcium 9.1 mg/dL (8.7-10.3); Carbon Dioxide 26.1 mmol/L (21.6-31.8); Chol/HDL Ratio 2.2; Globulin 2.2 g/dL (1.6-3.3); LDL Cholesterol,Calculated 24.8 mg/dL (0.0-131.0); Non-African American GFR(CKD) 67.2 (60.0-200.0); Potassium 4.5 mmol/L (3.5-5.5); Prostate Specific Antigen 0.6 ng/mL (0.0-6.5); Total Bilirubin 0.8 mg/dL (0.2-1.2); Total Protein 6.4 g/dL (6.2-8.2); VLDL Calculation 17.2 mg/dL (5.00-40.00)
== END | disposition home or self-care (01) ==
LOC: LABWHC1 06:59
PROVIDERS: ATTEND Family Medicine
DX: J98.11 Atelectasis (principal); M12.9 Arthropathy, unspecified; E78.5 Hyperlipidemia, unspecified; I25.10 Atherosclerotic heart disease of native coronary artery without angina pectoris; G62.9 Polyneuropathy, unspecified; R60.9 Edema, unspecified
CPT/HCPCS: 36415; 71046; 80053; 80061; 81003; 82550; 83880; 84153; 85025; 86038; 86431

== ENCOUNTER → 2021-09-30 | Outpatient (CLI) | payer MEDICARE ==
[2021-09-30 11:12] LABS: Basophils # (A) 0.06 X 10*3/uL (0.00-0.10); Basophils % (A) 0.5 %; Eosinophils # (A) 0.35 X 10*3/uL (0.04-0.35); HCT 49.8 % (39.6-50.0); HGB 16.7 g/dL (13.0-17.0); Lymphocytes # (A) 3.25 X 10*3/uL (0.90-5.00); Lymphocytes % (A) 28.3 %; MCH 30.2 pg (27.0-32.0); MCHC 33.5 g/dL (32.0-37.0); MCV 90.1 fL (80.0-97.0); Mean Platelet Volume 10.8 fL (9.5-12.2); Monocytes % (A) 8.7 %; Neutrophils # (A) 6.76 X 10*3/uL (1.80-7.70); Neutrophils % (A) 58.9 %; Platelet Count 197 X 10*3/uL (140-440); RBC 5.53 X 10*6/uL (4.40-5.60); RDW 13.3 % (11.5-14.5); WBC 11.49 X 10*3/uL (4.50-10.00)
== END | disposition home or self-care (01) ==
LOC: LABWHC1 07:06
PROVIDERS: ATTEND Internal Medicine Clinical Cardiac Electrophysiology
DX: M60.9 Myositis, unspecified (principal); R79.9 Abnormal finding of blood chemistry, unspecified
CPT/HCPCS: 36415; 82550; 85025

== ENCOUNTER → 2022-01-14 | Outpatient (CLI) | payer MEDICARE ==
[2022-01-14 16:13] LABS: Chol/HDL Ratio 2.14 Ratio; Creatine Kinase 327 U/L (35-257); LDL Cholesterol,Calculated 21.9 mg/dL (0.0-131.0)
== END | disposition home or self-care (01) ==
LOC: LABWHC1 07:18
PROVIDERS: ATTEND Internal Medicine Clinical Cardiac Electrophysiology
DX: I25.10 Atherosclerotic heart disease of native coronary artery without angina pectoris (principal); E78.5 Hyperlipidemia, unspecified; M60.9 Myositis, unspecified
CPT/HCPCS: 36415; 80061; 82550

== ENCOUNTER → 2022-05-11 | Outpatient (CLI) | payer MEDICARE ==
--- NOTE | 2022-05-11 08:44 | XR ---
EXAMINATION TYPE: XR chest 2V DATE OF EXAM: 05/11/2022 COMPARISON: X-ray dated 07/09/2021 HISTORY: Chest pain TECHNIQUE: Frontal and lateral views of the chest are obtained. FINDINGS: Left apical pleural thickening. Grossly unremarkable lungs otherwise. No sizable pleural effusion or definite pneumothorax. No gross cardiomegaly. Sternotomy wire sutures. Tortuous descending thoracic aorta. Mild degenerative changes of the thoraci c spine. IMPRESSION: No definite acute pulmonary abnormality identified.
[2022-05-11 14:42] LABS: Basophils # (A) 0.06 X 10*3/uL (0.00-0.10); Basophils % (A) 0.5 %; Eosinophils # (A) 0.46 X 10*3/uL (0.04-0.35); Eosinophils % (A) 3.9 %; HCT 50.8 % (39.6-50.0); HGB 16.8 g/dL (13.0-17.0); Immature Grans, Automated 0.8 %; Lymphocytes # (A) 3.64 X 10*3/uL (0.90-5.00); Lymphocytes % (A) 30.9 %; MCH 29.3 pg (27.0-32.0); MCHC 33.1 g/dL (32.0-37.0); MCV 88.7 fL (80.0-97.0); Mean Platelet Volume 11.6 fL (9.5-12.2); Monocytes # (A) 0.94 X 10*3/uL (0.20-1.00); NRBC Per 100 WBC 0 /100 WBCS (0.0-0.0); Neutrophils # (A) 6.58 X 10*3/uL (1.80-7.70); Neutrophils % (A) 55.9 %; Platelet Count 192 X 10*3/uL (140-440); RBC 5.73 X 10*6/uL (4.40-5.60); RDW 13.4 % (11.5-14.5); WBC 11.78 X 10*3/uL (4.50-10.00)
[2022-05-11 15:11] LABS: ALT 33 U/L (10-49); AST 29 U/L (14-35); African American GFR (CKD) 86.8 (60.0-200.0); Albumin 4.7 g/dL (3.8-4.9); Albumin/Globulin Ratio 2.35 (1.60-3.17); Alkaline Phosphatase 89 U/L (41-126); Calcium 9.1 mg/dL (8.7-10.3); Carbon Dioxide 23.6 mmol/L (20.0-27.5); Chloride 103 mmol/L (96-109); Creatine Kinase 319 U/L (35-257); Glucose 104 mg/dL (70-110); Non-African American GFR(CKD) 74.9 (60.0-200.0); Potassium 4.5 mmol/L (3.5-5.5); Rheumatoid Factor, Qnt <10 IU/mL (0-15); Sodium 139 mmol/L (135-145); Total Protein 6.7 g/dL (6.2-8.2)
[2022-05-11 18:42] LABS: Centromere Antibody <0.2 AI; Centromere Antibody Interp NEGATIVE (NEGATIVE); DNA Double-Stranded NEGATIVE (NEGATIVE); Scleroderma SC-70 Ab <0.2 AI
[2022-05-11 18:43] LABS: Cyclic Citrull Pep IgG Unit <0.5 U/mL; Cyclic Citrullinated Pep IgG NEGATIVE (NEGATIVE)
== END | disposition home or self-care (01) ==
LOC: LABWHC1 07:14
PROVIDERS: ATTEND Internal Medicine
DX: Z12.5 Encounter for screening for malignant neoplasm of prostate (principal); I25.10 Atherosclerotic heart disease of native coronary artery without angina pectoris; E78.5 Hyperlipidemia, unspecified; D72.829 Elevated white blood cell count, unspecified; M19.90 Unspecified osteoarthritis, unspecified site; R07.9 Chest pain, unspecified
CPT/HCPCS: 36415; 71046; 80053; 82306; 82550; 84153; 84443; 85025; 86038; 86200; 86225; 86235; 86431

== ENCOUNTER → 2022-10-26 | Outpatient (CLI) | payer MEDICARE | LOC: CPPFTMAIN 09:17 | PROVIDERS: ATTEND Internal Medicine | DX: R06.00 Dyspnea, unspecified (principal); Z88.5 Allergy status to narcotic agent; Z88.6 Allergy status to analgesic agent; Z88.8 Allergy status to other drugs, medicaments and biological substances | CPT/HCPCS: 94060; 94726; 94729 ==

== ENCOUNTER → 2022-11-29 | Outpatient (CLI) | payer MEDICARE ==
--- NOTE | 2022-11-30 06:00 | CT ---
EXAMINATION TYPE: CT chest wo con DATE OF EXAM: 11/29/2022 COMPARISON: CT December 29, 2016 HISTORY: lung disease CT DLP: 828.0 mGycm. Automated Exposure Control for Dose Reduction was Utilized. TECHNIQUE: CT scan of the thorax is performed without IV contrast. FINDINGS: LUNGS: The lungs remain grossly clear, there is no concerning new greater than 5 mm parenchymal mass or nodule identified. Occasional tiny thin-walled cysts is present. There is no pleural effusion or pneumothorax seen. Scattered mild parenchymal linear scarring anterior left mid lung and posterior ri ght upper lung coronal image 93 for reference. The tracheobronchial tree is patent. MEDIASTINUM: Lack of IV contrast is noted to limit evaluation for mediastinal and especially hilar ad enopathy. There are no definitive new greater than 1 cm mediastinal lymph nodes. Stable prominent but subcentimeter right paratracheal lymph node axial image 12. Post-CABG changes with sternal wires an d mediastinal clips is redemonstrated. No cardiomegaly or pericardial effusion is seen. Prominent iliana n pulmonary artery raises concern for underlying pulmonary artery hypertension. OTHER: [place] artifact from adjacent upper extremities for evaluation slightly suboptimal. There is de pendent small stones and/or gallbladder sludge. Prior right hepatic lobe irregular hypodense lesion o n axial image 58 not clearly seen on today's study. Multilevel spurring in the thoracic spine is rede monstrated IMPRESSION: Mild chronic parenchymal changes as detailed above. No acute pulmonary process.
== END | disposition home or self-care (01) ==
LOC: RADCTMAIN 14:53
PROVIDERS: ATTEND Internal Medicine
DX: J98.4 Other disorders of lung (principal); J84.9 Interstitial pulmonary disease, unspecified
CPT/HCPCS: 71250

== ENCOUNTER → 2022-12-21 | Outpatient (CLI) | payer MEDICARE ==
--- NOTE | 2022-12-21 12:44 | FL ---
EXAMINATION TYPE: FL sniff test without CXR DATE OF EXAM: 12/21/2022 COMPARISON: NONE HISTORY: J98.6 DISORDERS OF DIAPHRAGM TECHNIQUE: Sniff test was performed with 16 images submitted. FINDINGS: There is paradoxical motion of the left hemidiaphragm upon sniffing consistent with diaphra gmatic paralysis. There is normal motion of the right hemidiaphragm. Left hemidiaphragm is elevated. 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
[2022-12-21 12:53] LABS: C Reactive Protein <0.5 mg/dL (<1.0); Creatine Kinase 242 U/L (55-170)
== END | disposition home or self-care (01) ==
LOC: RADFLMAIN 10:18
PROVIDERS: ATTEND Internal Medicine
DX: J98.6 Disorders of diaphragm (principal); M60.9 Myositis, unspecified
CPT/HCPCS: 76000; 82550; 85652; 86038; 86140

== ENCOUNTER → 2023-03-25 | Outpatient (CLI) | payer MEDICARE ==
[2023-03-25 08:40] LABS: Basophils # (A) 0.1 k/uL (0-0.2); Basophils % (A) 1 %; Eosinophils # (A) 0.3 k/uL (0-0.7); Eosinophils % (A) 4 %; HCT 50.2 % (39.0-53.0); HGB 16.8 gm/dL (13.0-17.5); Lymphocytes # (A) 2.7 k/uL (1.0-4.8); Lymphocytes % (A) 30 %; MCH 29.7 pg (25.0-35.0); MCHC 33.4 g/dL (31.0-37.0); MCV 88.9 fL (80.0-100.0); Mean Platelet Volume 8.7; Monocytes # (A) 0.6 k/uL (0-1.0); Monocytes % (A) 6 %; Neutrophils # (A) 5.1 k/uL (1.3-7.7); Neutrophils % (A) 57 %; Platelet Count 181 k/uL (150-450); RBC 5.64 m/uL (4.30-5.90); RDW 13.6 % (11.5-15.5); WBC 8.9 k/uL (3.8-10.6)
[2023-03-25 12:08] LABS: Protein, Total 6.3 g/dL (6.2-8.2)
[2023-03-25 12:27] LABS: ALT 30 U/L (10-49); AST 33 U/L (14-35); African American GFR (CKD) 68.4 (60.0-200.0); Albumin 4.5 g/dL (3.8-4.9); Albumin/Globulin Ratio 2.31 (1.60-3.17); Alkaline Phosphatase 82 U/L (41-126); BUN/Creat Ratio 15.62 Ratio (12.00-20.00); Blood Urea Nitrogen 18.9 mg/dL (9.0-27.0); Calcium 9.5 mg/dL (8.7-10.3); Carbon Dioxide 27.6 mmol/L (20.0-27.5); Chloride 105 mmol/L (96-109); Chol/HDL Ratio 2.11 Ratio; Glucose 100 mg/dL (70-110); LDL Cholesterol,Calculated 27.6 mg/dL (0.0-131.0); Potassium 5.4 mmol/L (3.5-5.5); Sodium 142 mmol/L (135-145); Total Protein 6.5 g/dL (6.2-8.2); VLDL Calculation 16.18 mg/dL (5.00-40.00)
[2023-03-25 14:01] LABS: RBC Morphology Normal
== END | disposition home or self-care (01) ==
LOC: LABWHC1 06:56
PROVIDERS: ATTEND Internal Medicine
DX: E78.5 Hyperlipidemia, unspecified (principal); E55.9 Vitamin D deficiency, unspecified; D72.829 Elevated white blood cell count, unspecified
CPT/HCPCS: 36415; 80053; 80061; 82306; 84165; 84443; 85025

== ENCOUNTER → 2023-04-22 | Outpatient (CLI) | payer MEDICARE ==
--- NOTE | 2023-04-22 14:06 | US ---
EXAMINATION TYPE: US kidneys/renal and bladder DATE OF EXAM: 04/22/2023 COMPARISON: CT 2017 CLINICAL INDICATION: Male, 73 years old with history of N28.9 DISORDER OF KIDNEY AND URETER, UNSPECIF IED; Renal insufficiency EXAM MEASUREMENTS: Right Kidney: 12.1 x 5.7 x 4.8 cm Left Kidney: 13.4 x 5.9 x 5.1 cm Right Kidney: no evidence of hydronephrosis Left Kidney: parapelvic cystic areas noted Bladder: appears wnl Bilateral Jets seen: no Central simple parapelvic cysts in the left kidney redemonstrated. No nephrolithiasis is seen. No m asses are identified. The urinary bladder is adequately distended. Bilateral ureteral jets are seen . IMPRESSION: No hydronephrosis seen bilaterally. No significant change from [address] CT[address]
== END | disposition home or self-care (01) ==
LOC: RADUSWWP 13:12
PROVIDERS: ATTEND Internal Medicine
DX: N28.9 Disorder of kidney and ureter, unspecified (principal)
CPT/HCPCS: 76770

== ENCOUNTER 2023-06-07 08:47 | Day surgery (SDC) | payer MEDICARE ==
[~2023-06-07 08:47] MED LIST changes: -GABAPENTIN 300 MG CAP PO ONE; -HYDROmorphone 0.5 MG/0.5 ML SYRINGE IVP PRN; +LACTATED RINGERS 1,000 ML IV SCH; -MELOXICAM 7.5 MG TAB PO ONE; -ONDANSETRON 4 MG/2 ML VIAL IVP ONE; -TRANEXAMIC ACID 1,000 MG in SODIUM CHLORIDE 0.9% 100 ML IVPB ONE; -ceFAZolin 3 GM in SODIUM CHLORIDE 0.9% 100 ML IVPB ONE
[2023-06-07 09:19] VITALS: RESP 16; TEMP 96.3
[2023-06-07] MEDS ORDERED: MIDAZOLAM 2 MG/2 ML VIAL ONE (09:43)
[2023-06-07] MEDS ORDERED: fentaNYL (PF) 50 MCG/ML 2 ML AMP ONE (09:43)
[2023-06-07] MEDS ORDERED: PROPOFOL 10 MG/ML 20 ML VIAL IV ONE (09:43)
--- NOTE | 2023-06-07 09:44 | P.GSHP ---
History of Present Illness H&P Date: 06/07/23 Chief Complaint: Colon cancer screening 73-year-old male here for screening colonoscopy. Mother with history of colon cancer. Last colonoscopy 6 years ago. Patient also has issues with constipation at times. No rectal bleeding. Past Medical History Past Medical History: Hyperlipidemia, Hypertension Additional Past Medical History / Comment(s): elevated creatinine, hx trauma induced gout, hx lipomas, perirectal abscess. pt states he needs tyrell shoulder replacement History of Any Multi-Drug Resistant Organisms: None Reported Past Surgical History: Back Surgery, Coronary Bypass/CABG, Heart Catheterization With Stent, Joint Replacement Additional Past Surgical History / Comment(s): removal of lipoma, dental implants with jaw surgery x2, tyrell knee replacements, back surgery, laminectomy, right toe surgery, colonoscopy Past Anesthesia/Blood Transfusion Reactions: Postoperative Nausea & Vomiting (PONV) Additional Past Anesthesia/Blood Transfusion Reaction / Comment(s): PONV and unable to urinate from morphine, Date of Last Stent Placement:: 10/2008 Smoking Status: Never smoker - Past Family History Mother Family Medical History: Cancer Additional Family Medical History / Comment(s): colon Father Family Medical History: Diabetes Mellitus, Deep Vein Thrombosis (DVT), Hypertension Brother(s) Family Medical History: Deep Vein Thrombosis (DVT) Medications and Allergies Home Medications Medication Instructions Recorded Confirmed Type Aspirin 81 mg PO DAILY 07/29/15 06/07/23 History Naproxen Sodium [Aleve] 440 mg PO Q24HR PRN 07/29/15 06/07/23 History Alirocumab [Praluent Pen] 75 mg SQ Q14D 05/01/20 06/07/23 History atenoloL [Tenormin] 12.5 mg PO DAILY 05/01/20 06/07/23 History Furosemide [Lasix] 20 mg PO DAILY 05/30/23 06/07/23 History Pravastatin Sodium [Pravachol] 5 mg PO ONCE 06/07/23 06/07/23 History Allergies Allergy/AdvReac Type Severity Reaction Status Date / Time morphine Allergy Severe Nausea & Verified 06/07/23 09:04 Vomiting/UNABLE TO URINATE acetaminophen [From Lortab] Allergy Rash/Hives Verified 06/07/23 09:04 codeine Allergy Unknown Verified 06/07/23 09:04 hydrocodone bitartrate Allergy Rash/Hives Verified 06/07/23 09:04 [From Lortab] propoxyphene napsylate Allergy Unknown Verified 06/07/23 09:04 [From Darvocet-N] Rvukcnc-AMI-GoG Reductase AdvReac muscle Verified 06/07/23 09:04 Inhibitor weakness,increased [Zaddlcw-Own-Fwf Reductase liver Inhibitor] function test dissolveable polysorb suture AdvReac red skin Uncoded 06/07/23 09:04 Surgical - Exam Vital Signs Temp Pulse Resp BP Pulse Ox 96.3 F L 74 16 148/67 96 06/07/23 09:18 06/07/23 09:18 06/07/23 09:18 06/07/23 09:18 06/07/23 09:18 Physical exam: General: Well-developed, well-nourished HEENT: Normocephalic, sclerae nonicteric Abdomen: Nontender, nondistended Extremities: No edema Neuro: Alert and oriented Assessment and Plan (1) Colon cancer screening Narrative/Plan: Will proceed with colonoscopy at this time. Current Visit: Yes Status: Acute Code(s): Z12.11 - ENCOUNTER FOR SCREENING FOR MALIGNANT NEOPLASM OF COLON SNOMED Code(s): 940133496
--- NOTE | 2023-06-07 10:06 | P.PCN ---
Date of Procedure: 06/07/23 Procedure(s) Performed: PREOPERATIVE DIAGNOSIS: Colon cancer screening POSTOPERATIVE DIAGNOSIS: Tortuous colon PROCEDURE: Colonoscopy ANESTHESIA: MAC SURGEON: Jam Vivar M.D. SPECIMENS: None ENDOSCOPIC PROCEDURE: The patient was placed on the endoscopy table in the left decubitus position. The Olympus colonoscope was inserted into the anus and passed under direct visualization to the base of the cecum. The appendiceal orifice was visualized. From that point the scope was slowly withdrawn inspe cting all surfaces carefully. There were no neoplastic inflammatory or polypoid lesions throughout the cecum, ascending, transverse, descending, sigmoid and rectum. There was visible diverticulosis noted. The patient's colon was quite tortuous. Digital rectal examination was normal. The patient was taken to the recovery room in stable condition per anesthesia guidelines. RECOMMENDATIONS: Resume diet. Repeat colonoscopy 10 years.
[2023-06-07 10:28] VITALS: BP 117/79; PULSE 71
== END 2023-06-07 10:47 | disposition home or self-care (01) ==
LOC: ORWHC2ENDO 08:47
PROVIDERS: ATTEND Surgery
DX: Z12.11 Encounter for screening for malignant neoplasm of colon (principal); K57.30 Diverticulosis of large intestine without perforation or abscess without bleeding; K63.89 Other specified diseases of intestine; Z80.0 Family history of malignant neoplasm of digestive organs; I10 Essential (primary) hypertension; E78.5 Hyperlipidemia, unspecified; N28.9 Disorder of kidney and ureter, unspecified; M10.9 Gout, unspecified; Z79.82 Long term (current) use of aspirin; Z79.899 Other long term (current) drug therapy; Z88.5 Allergy status to narcotic agent; Z88.8 Allergy status to other drugs, medicaments and biological substances
CPT/HCPCS: G0105; J2250; J3010; J2704; 45378

== ENCOUNTER → 2023-09-01 | Outpatient (CLI) | payer MEDICARE ==
--- NOTE | 2023-09-01 14:33 | CT ---
EXAMINATION TYPE: CT chest wo con DATE OF EXAM: 09/01/2023 COMPARISON: 11/29/2022 HISTORY: SOB, interstitial lung disease CT DLP: 595.6 mGycm. Automated Exposure Control for Dose Reduction was Utilized. TECHNIQUE: CT scan of the thorax is performed without IV contrast. FINDINGS: LUNGS: Linear changes involving the lungs are most typical of scar or atelectasis. No consolidative p neumonia or pleural effusion. No pneumothorax. Airways appear to be patent. There is a 2 mm micronodu le left upper lobe axial image 31.. MEDIASTINUM: Lack of IV contrast is noted to limit evaluation for mediastinal and especially hilar ad enopathy. There are no definitive greater than 1 cm hilar or mediastinal lymph nodes. No cardiomega ly or pericardial effusion is seen. A descending thoracic aortic aneurysm measuring 4.6 cm. Heart is enlarged. There is coronary artery calcifications correlate for prior CABG. Median sternotomy changes noted. OTHER: There is multilevel hypertrophic and degenerative changes of the spine. Bilateral shoulder art hropathy. A chronic deformity of the thoracic cage on the right. Small accessory spleen. There is a 1 .2 cm benign-appearing left adrenal adenoma. IMPRESSION: 1. Mild changes of COPD with no diagnostic evidence of interstitial pulmonary fibrosis. 2. The stomach is distended. This could be a transient finding rather than related the gastric outlet abnormality or gastroparesis correlate clinically. 3. Cholelithiasis. 4. There is a 4.6 cm ascending aortic aneurysm 5. There is a 2 mm left upper lobe pulmonary micronodule which has a benign appearance which is stabl e.
== END | disposition home or self-care (01) ==
LOC: RADCTMAIN 13:55
PROVIDERS: ATTEND Internal Medicine
DX: J84.9 Interstitial pulmonary disease, unspecified (principal); K80.20 Calculus of gallbladder without cholecystitis without obstruction; I71.21 Aneurysm of the ascending aorta, without rupture; J44.9 Chronic obstructive pulmonary disease, unspecified; K63.89 Other specified diseases of intestine; R91.1 Solitary pulmonary nodule
CPT/HCPCS: 71250

== ENCOUNTER → 2023-09-02 | Outpatient (CLI) | payer MEDICARE ==
[2023-09-02 11:07] LABS: Basophils # (A) 0.06 X 10*3/uL (0.00-0.10); Basophils % (A) 0.6 %; HCT 49.5 % (39.6-50.0); HGB 16.2 d/dL (13.0-17.0); Lymphocytes # (A) 2.64 X 10*3/uL (0.90-5.00); Lymphocytes % (A) 26.1 %; MCH 29.5 pg (27.0-32.0); MCHC 32.7 d/dL (32.0-37.0); Mean Platelet Volume 11.5 FL (9.5-12.2); Monocytes % (A) 6.9 %; NRBC Per 100 WBC 0 X 10*3/uL (0.00-0.01); Neutrophils # (A) 6.27 X 10*3/uL (1.80-7.70); Platelet Count 197 X 10*3/uL (140-440); RDW 13.6 % (11.5-14.5); WBC 10.11 X 10*3/uL (4.50-10.00)
[2023-09-02 14:35] LABS: Prostate Specific Antigen 0.73 ng/mL (0.000-6.500)
[2023-09-02 15:03] LABS: ALT 21 U/L (10-49); AST 31 U/L (14-35); Albumin 4.4 d/dL (3.8-4.9); Albumin/Globulin Ratio 2.32 Ratio (1.60-3.17); Alkaline Phosphatase 84 U/L (41-126); BUN/Creat Ratio 18.45 Ratio (12.00-20.00); Blood Urea Nitrogen 20.3 mg/dL (9.0-27.0); Calcium 9.3 mg/dL (8.7-10.3); Carbon Dioxide 25.3 mmol/L (21.6-31.8); Chloride 106 mmol/L (96-109); Chol/HDL Ratio 1.93 Ratio; Creatine Kinase 213 U/L (35-257); Globulin 1.9 d/dL (1.6-3.3); Glucose 100 mg/dL (70-110); LDL Cholesterol,Calculated 22.4 mg/dL (0.0-131.0); Potassium 4.9 mmol/L (3.5-5.5); Sodium 142 mmol/L (135-145); Total Protein 6.3 d/dL (6.2-8.2)
== END | disposition home or self-care (01) ==
LOC: LABWHC1 06:51
PROVIDERS: ATTEND Internal Medicine
DX: Z12.5 Encounter for screening for malignant neoplasm of prostate (principal); Z11.59 Encounter for screening for other viral diseases; E78.5 Hyperlipidemia, unspecified; E55.9 Vitamin D deficiency, unspecified
CPT/HCPCS: 36415; 80053; 80061; 82306; 82550; 84153; 84443; 85025; 86803

== ENCOUNTER → 2024-03-09 | Outpatient (CLI) | payer MEDICARE ==
[2024-03-09 11:25] LABS: Basophils # (A) 0.09 X 10*3/uL (0.00-0.10); Basophils % (A) 0.8 %; Eosinophils # (A) 0.48 X 10*3/uL (0.04-0.35); Eosinophils % (A) 4.5 %; HCT 48.6 % (39.6-50.0); HGB 16.5 g/dL (13.0-17.0); Lymphocytes # (A) 3.25 X 10*3/uL (0.90-5.00); Lymphocytes % (A) 30.1 %; MCH 29.6 pg (27.0-32.0); MCV 87.1 FL (80.0-97.0); Mean Platelet Volume 11.2 FL (9.5-12.2); Monocytes # (A) 0.78 X 10*3/uL (0.20-1.00); Monocytes % (A) 7.2 %; NRBC Per 100 WBC 0 X 10*3/uL (0.00-0.01); Neutrophils # (A) 6.12 X 10*3/uL (1.80-7.70); Neutrophils % (A) 56.8 %; Platelet Count 176 X 10*3/uL (140-440); RBC 5.58 X 10*6/uL (4.40-5.60); RDW 13.7 % (11.5-14.5); WBC 10.78 X 10*3/uL (4.50-10.00)
[2024-03-09 12:10] LABS: BUN/Creat Ratio 19.92 Ratio (12.00-20.00); Blood Urea Nitrogen 23.9 mg/dL (9.0-27.0); Chloride 106 mmol/L (96-109); Chol/HDL Ratio 1.94 Ratio; Glucose 106 mg/dL (70-110); LDL Cholesterol,Calculated 22.5 mg/dL (0.0-131.0); Potassium 4.6 mmol/L (3.5-5.5); Sodium 142 mmol/L (135-145); Uric Acid 6.2 mg/dL (3.7-8.7); VLDL Calculation 18.72 mg/dL (5.00-40.00)
[2024-03-09 12:11] LABS: ALT 22 U/L (10-49); AST 27 U/L (14-35); Albumin 4.3 g/dL (3.8-4.9); Albumin/Globulin Ratio 2.26 Ratio (1.60-3.17); Alkaline Phosphatase 81 U/L (41-126); Calcium 9.5 mg/dL (8.7-10.3); Globulin 1.9 g/dL (1.6-3.3); Total Bilirubin 0.9 mg/dL (0.3-1.2); Total Protein 6.2 g/dL (6.2-8.2)
== END | disposition home or self-care (01) ==
LOC: LABWHC1 07:00
PROVIDERS: ATTEND Internal Medicine
DX: Z00.00 Encounter for general adult medical examination without abnormal findings (principal); E55.9 Vitamin D deficiency, unspecified; E78.5 Hyperlipidemia, unspecified; Z87.39 Personal history of other diseases of the musculoskeletal system and connective tissue; Z86.39 Personal history of other endocrine, nutritional and metabolic disease
CPT/HCPCS: 36415; 80053; 80061; 82306; 83036; 84443; 84550; 85025

== ENCOUNTER → 2024-06-28 | Outpatient (CLI) | payer MEDICARE ==
[2024-06-28 11:03] LABS: BUN/Creat Ratio 19.92 Ratio (12.00-20.00); Blood Urea Nitrogen 23.9 mg/dL (9.0-27.0); Calcium 9.1 mg/dL (8.7-10.3); Carbon Dioxide 27.8 mmol/L (21.6-31.8); Chloride 106 mmol/L (96-109); Creatine Kinase 266 U/L (35-257); Glucose 108 mg/dL (70-110); Magnesium 2.4 mg/dL (1.5-2.4); Potassium 5.3 mmol/L (3.5-5.5); Sodium 141 mmol/L (135-145)
== END | disposition home or self-care (01) ==
LOC: LABWHC1 06:57
PROVIDERS: ATTEND Internal Medicine Clinical Cardiac Electrophysiology
DX: I10 Essential (primary) hypertension (principal); G72.9 Myopathy, unspecified
CPT/HCPCS: 36415; 80048; 82550; 83735

== ENCOUNTER → 2024-09-12 | Outpatient (CLI) | payer MEDICARE ==
[2024-09-12 11:02] LABS: ALT 27 U/L (10-49); AST 30 U/L (14-35); Albumin 4.4 g/dL (3.8-4.9); Alkaline Phosphatase 67 U/L (41-126); BUN/Creat Ratio 20.58 Ratio (12.00-20.00); Blood Urea Nitrogen 24.7 mg/dL (9.0-27.0); Calcium 9.3 mg/dL (8.7-10.3); Carbon Dioxide 24.6 mmol/L (21.6-31.8); Chloride 104 mmol/L (96-109); Chol/HDL Ratio 2.11 Ratio; Glucose 110 mg/dL (70-110); LDL Cholesterol,Calculated 19.1 mg/dL (0.0-131.0); Magnesium 2.2 mg/dL (1.5-2.4); PSA Annual Screen 0.823 ng/mL (0.000-4.000); Potassium 5.1 mmol/L (3.5-5.5); Sodium 139 mmol/L (135-145); Total Bilirubin 0.8 mg/dL (0.3-1.2); Total Protein 6.4 g/dL (6.2-8.2)
[2024-09-12 11:07] LABS: Basophils # (A) 0.08 X 10*3/uL (0.00-0.10); Basophils % (A) 0.8 %; Eosinophils # (A) 0.43 X 10*3/uL (0.04-0.35); Eosinophils % (A) 4.4 %; HCT 48.2 % (39.6-50.0); Lymphocytes # (A) 3.08 X 10*3/uL (0.90-5.00); Lymphocytes % (A) 31.4 %; MCH 29.5 pg (27.0-32.0); MCHC 33.2 g/dL (32.0-37.0); MCV 88.9 FL (80.0-97.0); Mean Platelet Volume 11.4 FL (9.5-12.2); Monocytes # (A) 0.81 X 10*3/uL (0.20-1.00); Monocytes % (A) 8.3 %; NRBC Per 100 WBC 0 X 10*3/uL (0.00-0.01); Neutrophils # (A) 5.31 X 10*3/uL (1.80-7.70); Neutrophils % (A) 54.1 %; Platelet Count 193 X 10*3/uL (140-440); RBC 5.42 X 10*6/uL (4.40-5.60); RDW 13.4 % (11.5-14.5); WBC 9.81 X 10*3/uL (4.50-10.00)
== END | disposition home or self-care (01) ==
LOC: LABWHC1 06:55
PROVIDERS: ATTEND Internal Medicine
CPT/HCPCS: 36415; 80053; 80061; 82306; 83735; 84443; 85025